=== PATIENT | male | born 1980 ===

== ENCOUNTER 2017-03-17 03:12 | Inpatient (IN) | payer MEDICAID, OTHER ==
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
[2017-03-17] MEDS ORDERED: Sodium Chloride 0.9% 1,000 ML IV STA (03:25)
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
[2017-03-17 05:17] LABS: ALB/GLOB RATIO 1.4 (1.1-1.8); ALBUMIN 4.8 g/dL (3.0-4.8); ALT/SGPT 29 U/L (7-56); AST/SGOT 36 U/L (15-59); BLOOD UREA NITROGEN 8 mg/dL (7-21); GFR AFRICAN-AMERICAN > 60; GFR NON-AFRICAN AMERICAN > 60; LIPASE 35 U/L (23-300); MAGNESIUM 1.9 mg/dL (1.7-2.2)
[2017-03-17 05:28] LABS: TROPONIN I < 0.01 ng/mL
[2017-03-17] MEDS: Folic Acid 1 MG, Thiamine 100 MG, Multivitamin (MVI) 10 ML in Dextrose 5% In Water 1,00... IV SCH ×2 (05:28→16:52)
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
[2017-03-17 05:39] LABS: BASO # 0.01 K/mm3 (0.0-2.0); BASO % 0.1 % (0.0-3.0); GRAN # 8.45 (1.4-6.5); GRAN % 81.8 % (50.0-68.0); HEMOGLOBIN 16.9 gm/dL (14.0-18.0); LYMPH # 1.3 (1.2-3.4); LYMPH % 12.3 % (22.0-35.0); MEAN CELL VOLUME 92.5 fL (80.0-105.0); MEAN CORPUSCULAR HEMOGLOBIN 32.6 pg (25.0-35.0); MEAN CORPUSCULAR HGB CONC 35.3 g/dl (31.0-37.0); MEAN PLATELET VOLUME 9.2 fl (7.0-11.0); MONO # 0.6 (0.1-0.6); MONO % 5.8 % (1.0-6.0); PLATELET COUNT 287 10^3/uL (120.0-450.0); RBC 5.18 10^6/uL (3.5-6.1); RED CELL DISTRIBUTION WIDTH 12.6 % (11.5-14.5); WHITE BLOOD COUNT 10.3 10^3/ul (4.5-11.0)
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
[2017-03-17] MEDS ORDERED: Bacitracin Ointment 30 GM TUBE ONE (08:29)
[2017-03-17] MEDS ORDERED: Liquid Adhesive TOP ONE (08:29)
[2017-03-17] MEDS ORDERED: Lidocaine 1% w Epi 1:100,000 Inj ONE (08:29)
[2017-03-17] MEDS ORDERED: Absorbable Gelatin Sponge Size 100 ONE (08:29)
[2017-03-17] MEDS ORDERED: Thrombin Topical 20,000 Intl Units Spray Kit TOP ONE (08:30)
[2017-03-17 08:33] LABS: INR 0.99 (0.93-1.08); PARTIAL THROMBOPLASTIN TIME 26.6 Seconds (23.7-30.8); PROTHROMBIN TIME 10.7 Seconds (9.9-11.8)
[2017-03-17] MEDS ORDERED: Phenylephrine 10 mg/ml Inj ONE (08:52)
[2017-03-17] MEDS ORDERED: Propofol 10 mg/ml Inj (20 ML) ONE ×2 (08:52→08:56)
[2017-03-17] MEDS ORDERED: Succinylcholine 200 mg/10 ml Inj IV ONE (08:56)
[2017-03-17] MEDS ORDERED: Vancomycin 1 g Inj ONE (09:30)
[2017-03-17 09:35] LABS: URINE BILIRUBIN NEGATIVE (NEGATIVE); URINE BLOOD TRACE-INTACT (NEGATIVE); URINE GLUCOSE (UA) NEGATIVE (NEGATIVE); URINE LEUKOCYTE ESTERASE NEGATIVE Leu/uL (NEGATIVE); URINE NITRATE NEGATIVE (NEGATIVE); URINE PROTEIN TRACE mg/dL (<30 mg/dL); URINE UROBILINOGEN 0.2 E.U./dL (<1 E.U./dL)
--- NOTE | 2017-03-17 09:41 | RAD ---
HISTORY: etoh ams COMPARISON: No prior. FINDINGS: LUNGS: No active pulmonary disease. PLEURA: No significant pleural effusion identified, no pneumothorax apparent. CARDIOVASCULAR: Normal. OSSEOUS STRUCTURES: No significant abnormalities. VISUALIZED UPPER ABDOMEN: Normal. OTHER FINDINGS: None. IMPRESSION: No active disease.
[2017-03-17 09:49] LABS: URINE APPEARANCE CLEAR (CLEAR); URINE COLOR YELLOW (YELLOW)
[2017-03-17 09:56] LABS: URINE BACTERIA NEG (NEG); URINE EPITHELIAL CELLS 0 - 2 /hpf (0-5); URINE RBC NEGATIVE /hpf (0-2); URINE WBC 0 - 2 /hpf (0-6)
--- NOTE | 2017-03-17 10:09 | CARD ---
APPROVED REPORT EKG Measurement Heart [id number] MI [id number] [id number] <Conclusion> Normal sinus rhythm LVH by voltage
[2017-03-17] MEDS ORDERED: Neostigmine Methylsulfate 3mg/3ml Syringe IV ONE (10:24)
[2017-03-17] MEDS ORDERED: Glycopyrrolate 0.2 mg/ml (2ml vial) ONE (10:25)
--- NOTE | 2017-03-17 10:39 | PCM.SURG1 ---
Surgeon's Initial Post Op Note - Surgeon's Notes Surgeon: ROSIE Router Tender: SURGICAL REDIDENT Type of Anesthesia: General Endo Pre-Operative Diagnosis: ACUTE R SDH Operative Findings: ACUTE R SDH Post-Operative Diagnosis: SAME Operation Performed: R CRANIOTOMY EVAC OF SDH Specimen/Specimens Removed: SDH Estimated Blood Loss: EBL {In ML}: 100 Blood Products Given: N/A Drains Used: No Drains Post-Op Condition: Good Date of Surgery/Procedure: 03/17/17 Time of Surgery/Procedure: 10:39
[2017-03-17] MEDS ORDERED: Vancomycin 1gm in NS 250ml IVPB ONE (10:45)
[2017-03-17] MEDS ORDERED: HYDROmorphone 0.5 mg/0.5 ml ISec IVP PRN (10:57)
[2017-03-17] MEDS ORDERED: Sodium Chloride 0.9% 1,000 ML IV SCH (11:00)
[2017-03-17] MEDS: Morphine 2 mg/ml ISec IVP SCH ×2 (13:50→22:03)
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
[2017-03-17] MEDS: Dextrose 5%/0.45% NS 1,000 ML IV SCH (15:49)
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
[2017-03-17 18:35] VITALS: BMI 22.7
[2017-03-17] MEDS: Apap-Butalbital-Caffeine 325-50-40mg Tab PO PRN (20:55)
[2017-03-18] MEDS: Folic Acid 1 MG, Thiamine 100 MG, Multivitamin (MVI) 10 ML in Dextrose 5% In Water 1,00... IV SCH ×2 (02:16→13:56)
[2017-03-18 02:48] LABS: BARBITURATES, UR POSITIVE (NEGATIVE); BENZODIAZEPINES, UR NEGATIVE (NEGATIVE); OPIATES, UR POSITIVE (NEGATIVE); PHENCYCLIDINE, UR NEGATIVE (NEGATIVE)
[2017-03-18] MEDS: Morphine 2 mg/ml ISec IVP SCH ×7 (03:45→23:45)
[2017-03-18 06:38] LABS: BASO # 0.01 K/mm3 (0.0-2.0); BASO % 0.1 % (0.0-3.0); GRAN # 8.11 (1.4-6.5); GRAN % 67.7 % (50.0-68.0); LYMPH # 1.9 (1.2-3.4); LYMPH % 15.7 % (22.0-35.0); MEAN CELL VOLUME 91.7 fL (80.0-105.0); MEAN CORPUSCULAR HEMOGLOBIN 32.1 pg (25.0-35.0); MEAN PLATELET VOLUME 9.4 fl (7.0-11.0); MONO % 16.5 % (1.0-6.0); PLATELET COUNT 273 10^3/uL (120.0-450.0); RBC 4.68 10^6/uL (3.5-6.1); RED CELL DISTRIBUTION WIDTH 12.5 % (11.5-14.5)
[2017-03-18 07:55] LABS: ALB/GLOB RATIO 1.4 (1.1-1.8); ALT/SGPT 23 U/L (7-56); AST/SGOT 27 U/L (15-59); BLOOD UREA NITROGEN 9 mg/dL (7-21); CALCIUM 9.4 mg/dL (8.4-10.5); GFR AFRICAN-AMERICAN > 60; GFR NON-AFRICAN AMERICAN > 60
--- NOTE | 2017-03-18 10:13 | CT ---
PROCEDURE: CT HEAD WITHOUT CONTRAST. HISTORY: fu COMPARISON: 03/17/2017 TECHNIQUE: Axial computed tomography images were obtained through the head/brain without intravenous contrast. Radiation dose: Total exam DLP = 735 mGy-cm. This CT exam was performed using one or more of the following dose reduction techniques: Automated exposure control, adjustment of the mA and/or kV according to patient size, and/or use of iterative reconstruction technique. FINDINGS: HEMORRHAGE: There has been a recent craniotomy for drainage of a right-sided subdural hematoma. There is a small amount of air in the subdural space. There is a residual hematoma anteriorly that measures 6.7 mm in maximal thickness. BRAIN: There is improved mass effect with no significant midline shift seen currently. No atrophy or chronic microvascular ischemic changes. VENTRICLES: Unremarkable. No hydrocephalus. CALVARIUM: Recent craniotomy. This edema in the right side of the scalp. PARANASAL SINUSES: Unremarkable as visualized. No significant inflammatory changes. MASTOID AIR CELLS: Unremarkable as visualized. No inflammatory changes. OTHER FINDINGS: None. IMPRESSION: Status post recent craniotomy for drainage of right-sided subdural hematoma. Improvement in mass effect and midline shift.
[2017-03-18] MEDS: Apap-Butalbital-Caffeine 325-50-40mg Tab PO PRN (10:24)
--- NOTE | 2017-03-18 11:03 | CP.PCM.PN ---
<Denise Hurtado - Last Filed: 03/18/17 11:00> Subjective - Date & Time of Evaluation Date of Evaluation: 03/18/17 Time of Evaluation: 07:30 - Subjective Subjective: ICU progress note, Denise Hurtado PGY-2 Pt was seen and examined at bedside. No acute complaints at this time. Pt headache improved since yesterday. No acute events overnight as per nursing staff. Pt denied fever, chills, sob, chest pains, abdominal pains, n/v/d/c or urinary symptoms. Objective - Vital Signs/Intake and Output Vital Signs (last 24 hours): Temp Pulse Resp BP Pulse Ox 98.3 F 70 21 117/70 96 03/18/17 04:00 03/18/17 10:00 03/18/17 10:00 03/18/17 10:00 03/18/17 10:00 Intake and Output: 03/18/17 03/18/17 06:59 18:59 Intake Total 3100 Output Total 3325 Balance -225 - Medications Medications: Current Medications Acetaminophen/Butalbital/Caffeine (Fioricet) 1 tab PO Q4H PRN PRN Reason: headache Last Admin: 03/18/17 10:24 Dose: 1 tab Folic Acid 1 mg/ Thiamine HCl 100 mg/ Multivitamins/Vitamin C 10 ml/ Dextrose 1 ,011.2 mls @ 100 mls/hr IV .Q10H7M [facility] Last Admin: 03/18/17 02:16 Dose: 100 mls/hr Dextrose/Sodium Chloride (Dextrose 5%/0.45% Ns 1000 Ml) 1,000 mls @ 80 mls/hr IV .[id number] [facility] Last Admin: 03/17/17 15:49 Dose: 80 mls/hr Levetiracetam 250 mg/ Sodium (Chloride) 102.5 mls @ 410 mls/hr IV 0800,1999 [facility] Morphine Sulfate (Morphine) 2 mg IVP Q4H [facility] Last Admin: 03/18/17 10:30 Dose: 2 mg Pantoprazole Sodium (Protonix Inj) 40 mg IVP DAILY [facility] Last Admin: 03/18/17 10:25 Dose: 40 mg - Labs Labs: 03/18/17 05:55 03/18/17 05:55 PT 10.7 Seconds (9.9-11.8) 03/17/17 08:10 INR 0.99 (0.93-1.08) 03/17/17 08:10 APTT 26.6 Seconds (23.7-30.8) 03/17/17 08:10 - Constitutional Appears: No Acute Distress - Head Exam Additional comments: s/p Rt craniectomy bandaged cdi - Eye Exam Eye Exam: EOMI, Normal appearance, PERRL Pupil Exam: NORMAL ACCOMODATION, PERRL - ENT Exam ENT Exam: Mucous Membranes Moist, Normal Exam - Neck Exam Neck Exam: Full ROM, Normal Inspection. absent: Lymphadenopathy - Respiratory Exam Respiratory Exam: Clear to Ausculation Bilateral, NORMAL BREATHING PATTERN - Cardiovascular Exam Cardiovascular Exam: REGULAR RHYTHM, +S1, +S2. absent: Murmur - GI/Abdominal Exam GI & Abdominal Exam: Soft, Normal Bowel Sounds. absent: Tenderness - Extremities Exam Extremities Exam: Full ROM, Normal Capillary Refill, Normal Inspection. absent : Joint Swelling, Pedal Edema - Neurological Exam Neurological Exam: Alert, Awake, CN II-XII Intact, Normal Gait, Oriented x3 - Psychiatric Exam Psychiatric exam: Normal Affect, Normal Mood - Skin Skin Exam: Dry, Intact, Normal Color, Warm Assessment and Plan - Assessment and Plan (Free Text) Assessment: 37 M admitted to the ICU for close monitoring for traumatic brain injury, found to have rt subdural hematoma with a 7mm shift s/p rt subdural hematoma evacuation POD# 1. Repeat CT shows improvement of subdural hematoma, no shift noted. Neuro: - TBI: Rt Subdural hematoma with 7mm Shift s/p Rt subdural hematoma evacuation by NeuroSurgery, Dr. Garcia - AAOx3, mentating well - neurochecks q2h - seizure precautions - CIWA protocol for etoh abuse hx - Folic Acid, thiamine, multivitamins in Dextrose - Neurology, Dr. Soraida Josue Consulted, keppra 250mg IV q12 Pulm: - Stable, satting in the 90s - Maintain 02 sat >90% - HOB >30 - Aspiration Precautions CVS: - HD Stable - Continue to monitor - Maintain MAP >65 Renal: - Continue to monitor renal fcn - Supplement elytes as needed - voiding freely - maintain euvolemia ID: - afebrile - no leukocytosis or signs of infx - continue to monitor - maintain normothermia GI: - GI ppx - tolerating Regular diet Endo: - maintain bg 140-180 - currently stable GI and DVT ppx reviewed Seen reviewed and discussed with attending <Jimmy Stokes - Last Filed: 03/18/17 17:02> Objective - Vital Signs/Intake and Output Vital Signs (last 24 hours): Temp Pulse Resp BP Pulse Ox 98.3 F 78 17 110/69 96 03/18/17 04:00 03/18/17 15:30 03/18/17 15:30 03/18/17 15:30 03/18/17 15:30 Intake and Output: 03/18/17 03/18/17 06:59 18:59 Intake Total 3100 Output Total 3325 Balance -225 - Medications Medications: Current Medications Acetaminophen/Butalbital/Caffeine (Fioricet) 1 tab PO Q4H PRN PRN Reason: headache Last Admin: 03/18/17 10:24 Dose: 1 tab Benzocaine/Menthol (Cepacol Sore Throat) 1 denise MT Q2H PRN PRN Reason: Sore Throat Last Admin: 03/18/17 15:36 Dose: 1 denise Folic Acid 1 mg/ Thiamine HCl 100 mg/ Multivitamins/Vitamin C 10 ml/ Dextrose 1 ,011.2 mls @ 100 mls/hr IV .Q10H7M [facility] Last Admin: 03/18/17 13:56 Dose: 100 mls/hr Dextrose/Sodium Chloride (Dextrose 5%/0.45% Ns 1000 Ml) 1,000 mls @ 80 mls/hr IV .[id number] [facility] Last Admin: 03/17/17 15:49 Dose: 80 mls/hr Levetiracetam 250 mg/ Sodium (Chloride) 102.5 mls @ 410 mls/hr IV 0800,2000 [facility] Morphine Sulfate (Morphine) 2 mg IVP Q4H [facility] Last Admin: 03/18/17 14:54 Dose: Not Given Pantoprazole Sodium (Protonix Inj) 40 mg IVP DAILY [facility] Last Admin: 03/18/17 10:25 Dose: 40 mg - Labs Labs: 03/18/17 05:55 03/18/17 05:55 PT 10.7 Seconds (9.9-11.8) 03/17/17 08:10 INR 0.99 (0.93-1.08) 03/17/17 08:10 APTT 26.6 Seconds (23.7-30.8) 03/17/17 08:10 Attending/Attestation - Attestation I have personally seen and examined this patient.: Yes I have fully participated in the care of the patient.: Yes I have reviewed all pertinent clinical information, including history, physical exam and plan: Yes Notes (Text): 03/18/17 16:59 37 yo with acute SDH, s/p evacuation. alert and oriented x 3, no neuro deficit. Plan: pain control, OOB to chair, PT/OT, IS, chest PT, euvolemia, euglycemia, normothermia and 02 sat>90%. DVT/GI prophylaxis ccm time 40 min
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
--- NOTE | 2017-03-18 14:06 | CP.PCM.PN ---
Subjective - Date & Time of Evaluation Date of Evaluation: 03/18/17 Time of Evaluation: 14:04 - Subjective Subjective: POD 1 a, a, o x 3 follows all commands león well dsg c and d Rec transfer to floor OOB , ambulation Clear for dc from our standpoint when ambulating Objective - Vital Signs/Intake and Output Vital Signs (last 24 hours): Temp Pulse Resp BP Pulse Ox 98.3 F 79 14 130/69 98 03/18/17 04:00 03/18/17 13:30 03/18/17 13:30 03/18/17 13:30 03/18/17 13:30 Intake and Output: 03/18/17 03/18/17 06:59 18:59 Intake Total 3100 Output Total 3325 Balance -225 - Medications Medications: Current Medications Acetaminophen/Butalbital/Caffeine (Fioricet) 1 tab PO Q4H PRN PRN Reason: headache Last Admin: 03/18/17 10:24 Dose: 1 tab Folic Acid 1 mg/ Thiamine HCl 100 mg/ Multivitamins/Vitamin C 10 ml/ Dextrose 1 ,011.2 mls @ 100 mls/hr IV .Q10H7M [facility] Last Admin: 03/18/17 13:56 Dose: 100 mls/hr Dextrose/Sodium Chloride (Dextrose 5%/0.45% Ns 1000 Ml) 1,000 mls @ 80 mls/hr IV .[id number] [facility] Last Admin: 03/17/17 15:49 Dose: 80 mls/hr Levetiracetam 250 mg/ Sodium (Chloride) 102.5 mls @ 410 mls/hr IV 0800,1999 [facility] Morphine Sulfate (Morphine) 2 mg IVP Q4H [facility] Last Admin: 03/18/17 10:30 Dose: 2 mg Pantoprazole Sodium (Protonix Inj) 40 mg IVP DAILY [facility] Last Admin: 03/18/17 10:25 Dose: 40 mg - Labs Labs: 03/18/17 05:55 03/18/17 05:55 PT 10.7 Seconds (9.9-11.8) 03/17/17 08:10 INR 0.99 (0.93-1.08) 03/17/17 08:10 APTT 26.6 Seconds (23.7-30.8) 03/17/17 08:10
[2017-03-18] MEDS ORDERED: Benzocaine/Menthol (Cepacol) Lozenge MT PRN (14:53)
--- NOTE | 2017-03-18 16:06 | OP ---
PROCEDURE DATE: 03/17/2017 PREOPERATIVE DIAGNOSIS: Right acute subdural hematoma. POSTOPERATIVE DIAGNOSIS: Right acute subdural hematoma. PROCEDURE: Craniotomy for evacuation of right acute subdural hematoma. SURGEON: Marcelo Garcia MD BI[employer]ESSING [employer]UFA[employer]URING TECHNICIAN: residential manager. Antolin. DESCRIPTION OF PROCEDURE: The patient was brought to the operating room, Intubated appropriately, head was turned to left to right frontal parietotemporal region was prepped and draped in the usual manner. incision was marked out in the frontoparietal region prior to draping. After draping, was instilled with 10 mL of lidocaine with epinephrine. The incision was then incised sharply and Alirio clips were applied to the skin edge. The flap was retracted back in the usual manner. Four bur holes were placed in the corners of the exposed cranium, extended with the craniotome and the bone plate was removed. The underlying dura was full tense and blue. The dura was then opened in a cruciate manner with a 15 blade followed by Metzenbaum scissors. There was acute subdural underlying air which was easily evacuated using combination of irrigation and blunt dissection and suction. After removing the bulk of the subdural, the underlying brain appeared to be normal in characteristics, pulsatile and slack. The subdural space was irrigated with copious amounts of antibiotic irrigation until all returns were clear. At this point, the dura was then reapproximated with 4-0 Nurolon. Piece of Gelfoam was placed over the exposed dura and three 16 mm plates were then used placing 3 other bur holes tightened and taut and the stems cut off. The wound was again irrigated and the scalp was reapproximated using 2-0 Vicryl and skin brigida. Sterile dressing was applied and the patient was then awoke from anesthesia, has been moving lower extremities, talking . ESTIMATED BLOOD LOSS: Approximately 100 mL. All counts were correct. SPECIMEN: Subdural hematoma. Marcelo Garcia MD
[2017-03-19] MEDS: Dextrose 5%/0.45% NS 1,000 ML IV SCH (01:11)
[2017-03-19] MEDS: Morphine 2 mg/ml ISec IVP SCH ×6 (03:45→22:45)
[2017-03-19 06:37] LABS: BASO # 0.01 K/mm3 (0.0-2.0); BASO % 0.2 % (0.0-3.0); EOS % 0.3 % (1.5-5.0); GRAN # 3.11 (1.4-6.5); GRAN % 47.3 % (50.0-68.0); HEMOGLOBIN 14.5 gm/dL (14.0-18.0); LYMPH # 2.4 (1.2-3.4); LYMPH % 35.8 % (22.0-35.0); MEAN CELL VOLUME 93.6 fL (80.0-105.0); MEAN CORPUSCULAR HEMOGLOBIN 32.1 pg (25.0-35.0); MEAN CORPUSCULAR HGB CONC 34.3 g/dl (31.0-37.0); MEAN PLATELET VOLUME 9.3 fl (7.0-11.0); MONO # 1.1 (0.1-0.6); MONO % 16.4 % (1.0-6.0); PLATELET COUNT 235 10^3/uL (120.0-450.0); RBC 4.52 10^6/uL (3.5-6.1); RED CELL DISTRIBUTION WIDTH 12.7 % (11.5-14.5); WHITE BLOOD COUNT 6.6 10^3/ul (4.5-11.0)
[2017-03-19 06:50] LABS: ALB/GLOB RATIO 1.2 (1.1-1.8); ALBUMIN 3.7 g/dL (3.0-4.8); ALT/SGPT 26 U/L (7-56); AST/SGOT 26 U/L (15-59); BLOOD UREA NITROGEN 10 mg/dL (7-21); GFR AFRICAN-AMERICAN > 60; GFR NON-AFRICAN AMERICAN > 60
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
[2017-03-20] MEDS: Morphine 2 mg/ml ISec IVP SCH ×2 (02:45→07:26)
[2017-03-20] MEDS ORDERED: Pantoprazole 40 mg EC Tab PO SCH (06:00)
[2017-03-20 07:58] LABS: BASO # 0.02 K/mm3 (0.0-2.0); BASO % 0.3 % (0.0-3.0); EOS % 0.7 % (1.5-5.0); GRAN # 2.92 (1.4-6.5); GRAN % 49.6 % (50.0-68.0); HEMOGLOBIN 14.9 gm/dL (14.0-18.0); LYMPH # 2.2 (1.2-3.4); LYMPH % 37.8 % (22.0-35.0); MEAN CELL VOLUME 93.7 fL (80.0-105.0); MEAN CORPUSCULAR HEMOGLOBIN 32.4 pg (25.0-35.0); MEAN CORPUSCULAR HGB CONC 34.6 g/dl (31.0-37.0); MEAN PLATELET VOLUME 9.2 fl (7.0-11.0); MONO # 0.7 (0.1-0.6); MONO % 11.6 % (1.0-6.0); PLATELET COUNT 251 10^3/uL (120.0-450.0); RED CELL DISTRIBUTION WIDTH 12.5 % (11.5-14.5); WHITE BLOOD COUNT 5.9 10^3/ul (4.5-11.0)
[2017-03-20] MEDS ORDERED: Multivitamin With Minerals Tab PO SCH (08:00)
[2017-03-20 08:12] LABS: ALB/GLOB RATIO 1.1 (1.1-1.8); ALBUMIN 3.7 g/dL (3.0-4.8); ALT/SGPT 29 U/L (7-56); AST/SGOT 24 U/L (15-59); BLOOD UREA NITROGEN 12 mg/dL (7-21); CALCIUM 9.4 mg/dL (8.4-10.5); GFR AFRICAN-AMERICAN > 60; GFR NON-AFRICAN AMERICAN > 60
[2017-03-20 08:44] VITALS: BP 121/82; PULSE 60; RESP 19; TEMP 98; O2SAT 99
--- NOTE | 2017-03-20 11:09 | CP.PCM.DIS ---
<Amber Fermin - Last Filed: 03/20/17 15:44> Provider - Provider Date of Admission: 03/17/17 06:05 Attending physician: Melody Fischer MD Primary care physician: NO PRIMARY CARE PROVIDER Consults: NeurosurgeryDave Garcia Time Spent in preparation of Discharge (in minutes): 35 Diagnosis - Discharge Diagnosis (1) S/P craniotomy Status: Acute Hospital Course - Lab Results Lab Results: Micro Results 03/17/17 11:40 Naris MRSA Culture (Admit) - Final MRSA NOT DETECTED Most Recent Lab Values WBC 5.9 10^3/ul (4.5-11.0) 03/20/17 07:30 RBC 4.60 10^6/uL (3.5-6.1) 03/20/17 07:30 Hgb 14.9 gm/dL (14.0-18.0) 03/20/17 07:30 Hct 43.1 % (42.0-52.0) 03/20/17 07:30 MCV 93.7 fL (80.0-105.0) 03/20/17 07:30 MCH 32.4 pg (25.0-35.0) 03/20/17 07:30 MCHC 34.6 g/dl (31.0-37.0) 03/20/17 07:30 RDW 12.5 % (11.5-14.5) 03/20/17 07:30 Plt Count 251 10^3/uL (120.0-450.0) 03/20/17 07:30 MPV 9.2 fl (7.0-11.0) 03/20/17 07:30 Gran % 49.6 % (50.0-68.0) L 03/20/17 07:30 Lymph % (Auto) 37.8 % (22.0-35.0) H 03/20/17 07:30 Anson % (Auto) 11.6 % (1.0-6.0) H 03/20/17 07:30 Eos % (Auto) 0.7 % (1.5-5.0) L 03/20/17 07:30 Baso % (Auto) 0.3 % (0.0-3.0) 03/20/17 07:30 Gran # 2.92 (1.4-6.5) 03/20/17 07:30 Lymph # 2.2 (1.2-3.4) 03/20/17 07:30 Anson # 0.7 (0.1-0.6) H 03/20/17 07:30 Eos # 0.0 (0.0-0.7) 03/20/17 07:30 Baso # 0.02 K/mm3 (0.0-2.0) 03/20/17 07:30 PT 10.7 Seconds (9.9-11.8) 03/17/17 08:10 INR 0.99 (0.93-1.08) 03/17/17 08:10 APTT 26.6 Seconds (23.7-30.8) 03/17/17 08:10 Sodium 139 mmol/L (132-148) 03/20/17 07:30 Potassium 3.8 mmol/L (3.6-5.0) 03/20/17 07:30 Chloride 100 mmol/L (98-107) 03/20/17 07:30 Carbon Dioxide 30 mmol/L (21-33) 03/20/17 07:30 Anion Gap 13 (10-20) 03/20/17 07:30 BUN 12 mg/dL (7-21) 03/20/17 07:30 Creatinine 0.8 mg/dL (0.5-1.4) 03/20/17 07:30 Est GFR ( Amer) > 60 03/20/17 07:30 Est GFR (Non-Af Amer) > 60 03/20/17 07:30 POC Glucose (mg/dL) 101 mg/dL (65-110) 03/17/17 05:00 Random Glucose 92 mg/dL (70-110) 03/20/17 07:30 Calcium 9.4 mg/dL (8.4-10.5) 03/20/17 07:30 Phosphorus 3.5 mg/dL (2.5-4.5) 03/17/17 04:20 Magnesium 1.9 mg/dL (1.7-2.2) 03/17/17 04:20 Total Bilirubin 0.9 mg/dL (0.2-1.3) 03/20/17 07:30 AST 24 U/L (15-59) 03/20/17 07:30 ALT 29 U/L (7-56) 03/20/17 07:30 Alkaline Phosphatase 59 U/L (38-133) 03/20/17 07:30 Lactate Dehydrogenase 549 U/L (333-699) 03/17/17 04:20 Total Creatine Kinase 98 U/L (35-230) 03/17/17 04:20 Troponin I < 0.01 ng/mL 03/17/17 04:20 Total Protein 7.0 g/dL (5.8-8.3) 03/20/17 07:30 Albumin 3.7 g/dL (3.0-4.8) 03/20/17 07:30 Globulin 3.3 gm/dL 03/20/17 07:30 Albumin/Globulin Ratio 1.1 (1.1-1.8) 03/20/17 07:30 Lipase 35 U/L (23-300) 03/17/17 04:20 Urine Color Yellow (YELLOW) 03/17/17 03:24 Urine Appearance Clear (CLEAR) 03/17/17 03:24 Urine pH 6.0 (4.7-8.0) 03/17/17 03:24 Ur Specific [place] 1.025 (1.005-1.035) 03/17/17 03:24 Urine Protein Trace mg/dL (<30 mg/dL) H 03/17/17 03:24 Urine Glucose (UA) Negative mg/dL (NEGATIVE) 03/17/17 03:24 Urine Ketones 15 mg/dL (NEGATIVE) H 03/17/17 03:24 Urine Blood Trace-intact (NEGATIVE) H 03/17/17 03:24 Urine Nitrate Negative (NEGATIVE) 03/17/17 03:24 Urine Bilirubin Negative (NEGATIVE) 03/17/17 03:24 Urine Urobilinogen 0.2 E.U./dL (<1 E.U./dL) 03/17/17 03:24 Ur Leukocyte Esterase Negative Mayra/uL (NEGATIVE) 03/17/17 03:24 Urine RBC Negative /hpf (0-2) 03/17/17 03:24 Urine WBC 0 - 2 /hpf (0-6) 03/17/17 03:24 Ur Epithelial Cells 0 - 2 /hpf (0-5) 03/17/17 03:24 Urine Bacteria Neg (NEG) 03/17/17 03:24 Urine Opiates Screen Positive (NEGATIVE) H 03/18/17 01:50 Urine Methadone Screen Negative (NEGATIVE) 03/18/17 01:50 Ur Barbiturates Screen Positive (NEGATIVE) H 03/18/17 01:50 Ur Phencyclidine Scrn Negative (NEGATIVE) 03/18/17 01:50 Ur Amphetamines Screen Negative (NEGATIVE) 03/18/17 01:50 U Benzodiazepines Scrn Negative (NEGATIVE) 03/18/17 01:50 U Oth Cocaine Metabols Positive (NEGATIVE) H 03/18/17 01:50 U Cannabinoids Screen Negative (NEGATIVE) 03/18/17 01:50 Alcohol, Quantitative 267 mg/dL (0-10) H 03/17/17 04:20 Blood Type A POSITIVE 03/17/17 08:10 Blood Type Confirm A POSITIVE 03/18/17 05:55 Antibody Screen Negative 03/17/17 08:10 BBK History Checked No verified bt 03/17/17 08:10 - Hospital Course Hospital Course: 37M admitted to hospital 2/2 AMS/unresponsiveness from ETOH intoxication. Work up in ED revealed 6-9mm subdural hematoma on CT of head, L nasal bone deformity on CT of face; ETOH level 267. Pt was admitted to ICU, placed on CIWA protocol with all precautions and pain mgmt. Neurology consulted, recommendation of Keppra therapy. Neuro surgery saw/evaluated pt with recommendation for crainiotomy on hospital day 1. POD#[address] w/improvement of subdural hematoma, no shift noted; pt stabilized, transferred from ICU to med surg. Pt encouraged to ambulate, did well on med surg floor, stable, dressing removed and wound cleaned with wound care instructions rendered to pt and family member at bedside, and ready for discharge home with follow up with Neurosurgery on hospital day 4. Diagnoses: ETOH intoxication, Subdural hematom, s/p Right craniotomy w/subdural hematoma evacuation, polysubstance abuse - Date & Time of H&P Date of H&P: 03/17/17 Time of H&P: 17:22 Discharge Exam - Head Exam Additional comments: Right side of head shaved with surgical incision site well approximated with brigida in place, no drainage noted, dressing removed as per neurosurgery - Eye Exam Eye Exam: EOMI, Normal appearance - ENT Exam ENT Exam: Mucous Membranes Moist, Normal Exam - Neck Exam Neck exam: Full Rom, Normal Inspection - Respiratory Exam Respiratory Exam: Clear to PA & Lateral, NORMAL BREATHING PATTERN, UNREMARKABLE - Cardiovascular Exam Cardiovascular Exam: REGULAR RHYTHM, +S1, +S2 - GI/Abdominal Exam GI & Abdominal Exam: Normal Bowel Sounds, Soft, Unremarkable. absent: Tenderness - Extremities Exam Extremities exam: full ROM, normal inspection - Back Exam Back exam: NORMAL INSPECTION - Neurological Exam Neurological exam: Alert, CN II-XII Intact, Normal Gait, Oriented x3 - Psychiatric Exam Psychiatric exam: Normal Affect, Normal Mood - Skin Skin Exam: Dry, Intact, Normal Color, Warm Discharge Plan - Discharge Medications Prescriptions: Folic Acid 1 mg PO DAILY #30 tab levETIRAcetam [Keppra] 250 mg PO BID #60 tab Multimineral/Multivitamin [Therapeutic-M Tab] 1 tab PO DAILY #30 tab Thiamine [Vitamin B1 Tab] 100 mg PO DAILY #30 tab - Follow Up Plan Condition: STABLE Disposition: HOME/ ROUTINE Instructions: Pain Management After Surgery (DC), Subdural Hematoma (DC), Abuse of Alcohol (DC), Acute Wound Care (DC) Additional Instructions: 1. Please follow up with the [facility] to establish care with a primary care provider. Please call Dr. Garcia's (the neurosurgeon) office for a follow up appointment within 2 weeks. 2. Fill any medications prescribed to you and take as directed. 3. Return to the emergency room if you have any worsening of you symptoms or condition 4. Refrain from alcohol and tobacco use. 5. Refrain from illicit drug use, especially cocaine 6. Okay to shower, gently clean surgical site with soap and water. Pat dry. For further questions contact Dr. Garcia. 7. Please contact [facility] and set up appointment for primary care follow up. Referrals: [facility] at [facility] [place] [place] [Outside] Marcelo Garcia MD [Staff Provider] - PCP,NO [Primary Care Provider] - <Melody Fischer - Last Filed: 03/20/17 16:44> Provider - Provider Date of Admission: 03/17/17 06:05 Attending physician: Melody Fischer MD Primary care physician: NO PRIMARY CARE PROVIDER Hospital Course - Lab Results Lab Results: Micro Results 03/17/17 11:40 Naris MRSA Culture (Admit) - Final MRSA NOT DETECTED Most Recent Lab Values WBC 5.9 10^3/ul (4.5-11.0) 03/20/17 07:30 RBC 4.60 10^6/uL (3.5-6.1) 03/20/17 07:30 Hgb 14.9 gm/dL (14.0-18.0) 03/20/17 07:30 Hct 43.1 % (42.0-52.0) 03/20/17 07:30 MCV 93.7 fL (80.0-105.0) 03/20/17 07:30 MCH 32.4 pg (25.0-35.0) 03/20/17 07:30 MCHC 34.6 g/dl (31.0-37.0) 03/20/17 07:30 RDW 12.5 % (11.5-14.5) 03/20/17 07:30 Plt Count 251 10^3/uL (120.0-450.0) 03/20/17 07:30 MPV 9.2 fl (7.0-11.0) 03/20/17 07:30 Gran % 49.6 % (50.0-68.0) L 03/20/17 07:30 Lymph % (Auto) 37.8 % (22.0-35.0) H 03/20/17 07:30 Anson % (Auto) 11.6 % (1.0-6.0) H 03/20/17 07:30 Eos % (Auto) 0.7 % (1.5-5.0) L 03/20/17 07:30 Baso % (Auto) 0.3 % (0.0-3.0) 03/20/17 07:30 Gran # 2.92 (1.4-6.5) 03/20/17 07:30 Lymph # 2.2 (1.2-3.4) 03/20/17 07:30 Anson # 0.7 (0.1-0.6) H 03/20/17 07:30 Eos # 0.0 (0.0-0.7) 03/20/17 07:30 Baso # 0.02 K/mm3 (0.0-2.0) 03/20/17 07:30 PT 10.7 Seconds (9.9-11.8) 03/17/17 08:10 INR 0.99 (0.93-1.08) 03/17/17 08:10 APTT 26.6 Seconds (23.7-30.8) 03/17/17 08:10 Sodium 139 mmol/L (132-148) 03/20/17 07:30 Potassium 3.8 mmol/L (3.6-5.0) 03/20/17 07:30 Chloride 100 mmol/L (98-107) 03/20/17 07:30 Carbon Dioxide 30 mmol/L (21-33) 03/20/17 07:30 Anion Gap 13 (10-20) 03/20/17 07:30 BUN 12 mg/dL (7-21) 03/20/17 07:30 Creatinine 0.8 mg/dL (0.5-1.4) 03/20/17 07:30 Est GFR ( Amer) > 60 03/20/17 07:30 Est GFR (Non-Af Amer) > 60 03/20/17 07:30 POC Glucose (mg/dL) 101 mg/dL (65-110) 03/17/17 05:00 Random Glucose 92 mg/dL (70-110) 03/20/17 07:30 Calcium 9.4 mg/dL (8.4-10.5) 03/20/17 07:30 Phosphorus 3.5 mg/dL (2.5-4.5) 03/17/17 04:20 Magnesium 1.9 mg/dL (1.7-2.2) 03/17/17 04:20 Total Bilirubin 0.9 mg/dL (0.2-1.3) 03/20/17 07:30 AST 24 U/L (15-59) 03/20/17 07:30 ALT 29 U/L (7-56) 03/20/17 07:30 Alkaline Phosphatase 59 U/L (38-133) 03/20/17 07:30 Lactate Dehydrogenase 549 U/L (333-699) 03/17/17 04:20 Total Creatine Kinase 98 U/L (35-230) 03/17/17 04:20 Troponin I < 0.01 ng/mL 03/17/17 04:20 Total Protein 7.0 g/dL (5.8-8.3) 03/20/17 07:30 Albumin 3.7 g/dL (3.0-4.8) 03/20/17 07:30 Globulin 3.3 gm/dL 03/20/17 07:30 Albumin/Globulin Ratio 1.1 (1.1-1.8) 03/20/17 07:30 Lipase 35 U/L (23-300) 03/17/17 04:20 Urine Color Yellow (YELLOW) 03/17/17 03:24 Urine Appearance Clear (CLEAR) 03/17/17 03:24 Urine pH 6.0 (4.7-8.0) 03/17/17 03:24 Ur Specific [place] 1.025 (1.005-1.035) 03/17/17 03:24 Urine Protein Trace mg/dL (<30 mg/dL) 03/17/17 03:24 Urine Glucose (UA) Negative mg/dL (NEGATIVE) 03/17/17 03:24 Urine Ketones 15 mg/dL (NEGATIVE) 03/17/17 03:24 Urine Blood Trace-intact (NEGATIVE) 03/17/17 03:24 Urine Nitrate Negative (NEGATIVE) 03/17/17 03:24 Urine Bilirubin Negative (NEGATIVE) 03/17/17 03:24 Urine Urobilinogen 0.2 E.U./dL (<1 E.U./dL) 03/17/17 03:24 Ur Leukocyte Esterase Negative Mayra/uL (NEGATIVE) 03/17/17 03:24 Urine RBC Negative /hpf (0-2) 03/17/17 03:24 Urine WBC 0 - 2 /hpf (0-6) 03/17/17 03:24 Ur Epithelial Cells 0 - 2 /hpf (0-5) 03/17/17 03:24 Urine Bacteria Neg (NEG) 03/17/17 03:24 Urine Opiates Screen Positive (NEGATIVE) 03/18/17 01:50 Urine Methadone Screen Negative (NEGATIVE) 03/18/17 01:50 Ur Barbiturates Screen Positive (NEGATIVE) 03/18/17 01:50 Ur Phencyclidine Scrn Negative (NEGATIVE) 03/18/17 01:50 Ur Amphetamines Screen Negative (NEGATIVE) 03/18/17 01:50 U Benzodiazepines Scrn Negative (NEGATIVE) 03/18/17 01:50 U Oth Cocaine Metabols Positive (NEGATIVE) 03/18/17 01:50 U Cannabinoids Screen Negative (NEGATIVE) 03/18/17 01:50 Alcohol, Quantitative 267 mg/dL (0-10) H 03/17/17 04:20 Blood Type A POSITIVE 03/17/17 08:10 Blood Type Confirm A POSITIVE 03/18/17 05:55 Antibody Screen Negative 03/17/17 08:10 BBK History Checked No verified bt 03/17/17 08:10 Attending/Attestation - Attestation I have personally seen and examined this patient.: Yes I have fully participated in the care of the patient.: Yes I have reviewed all pertinent clinical information, including history, physical exam and plan: Yes Notes (Text): 03/20/17 16:43 attending note; Patient seen and examined with resident. Patient is a 37-year-old male admitted after a subdural hematoma due to fall. Status post craniotomy and evacuation of subdural hematoma. POD##. Neurosurgery evaluation appreciated. Repeat she CT showed improvement in the mass effect and midline shift. Patient is alert, awake and oriented. No focal deficit. Physical therapy evaluation appreciated. Alcohol abuse; complete alcohol cessation is strongly advised. Paperwork completed for [facility]. social worker psychiatric evaluation appreciated. patient will be referred to [facility] [place] [place] clinic upon discharge. Patient needs close follow-up with neurosurgery as outpatient. diagnosis; Subdural hematoma Status post craniotomy and evacuation Alcohol abuse
[2017-03-20] MEDS ORDERED: Dakin's Topical 0.25%-Half Strength (480 ml) TOP SCH (13:30)
== END 2017-03-20 15:43 | disposition home or self-care (01) | DRG 27 ==
LOC: ED 03:12 → ERH 06:05 → CCU 11:29 → 3RSO 03-19 17:02
PROVIDERS: ADMIT Internal Medicine; ATTEND Internal Medicine
PROC: 00C40ZZ Extirpation of Matter from Intracranial Subdural Space, Open Approach (ICD-10-PCS; principal; 2017-03-17 09:00)
DX: S06.5X9A Traumatic subdural hemorrhage with loss of consciousness of unspecified duration, initial encounter (principal); F10.129 Alcohol abuse with intoxication, unspecified; F14.10 Cocaine abuse, uncomplicated; Y90.8 Blood alcohol level of 240 mg/100 ml or more; J02.9 Acute pharyngitis, unspecified; Y04.0XXA Assault by unarmed brawl or fight, initial encounter; Y93.89 Activity, other specified; Y92.9 Unspecified place or not applicable; Y99.9 Unspecified external cause status

== ENCOUNTER 2017-03-20 22:49 | Observation (INO) | payer MEDICAID, OTHER ==
--- NOTE | 2017-03-20 22:57 | ED PDOC ---
Arrival/HPI - General Time Seen by Provider: 03/20/17 22:52 - History of Present Illness Narrative History of Present Illness (Text): 03/21/17 00:38 37-year-old male presents emergency Department with one-day duration of headache , nausea, vomiting. Patient was recently discharged from the hospital on March 20 after having subdural hematoma evacuation. Denies any alcohol use today, denies any trauma or injury. No other complaints. Past Medical History - Provider Review Nursing Documentation Reviewed: Yes - Past History Past History: Unable to Obtain - Infectious Disease Hx of Infectious Diseases: None - Cardiac Hx Cardiac Disorders: No - Pulmonary Hx Respiratory Disorders: No - Neurological Hx Neurological Disorder: No - Renal Hx Renal Failure: No - Endocrine/Metabolic Hx Endocrine Disorders: No - Hematological/Oncological Hx Blood Disorders: No - Musculoskeletal/Rheumatological Hx Falls: No - Gastrointestinal Hx Gastrointestinal Disorders: No - Psychiatric Hx Substance Use: No - Anesthesia Hx Anesthesia: No Family/Social History Family/Social History: Unknown Family HX Smoking Status: Unknown If Ever Smoked Hx Alcohol Use: Yes Hx Substance Use: No Allergies/Home Meds Allergies/Adverse Reactions: Allergies No Known Allergies Allergy (Verified 03/20/17 22:59) Physical Exam - Physical Exam Narrative Physical Exam (Text): 03/21/17 00:40 - Review of Systems Constitutional: Normal. absent: Fatigue, Weight Change, Fevers Eyes: Normal ENT: denies sore throat, denies tristhmus Respiratory: Normal. absent: SOB, Cough, Sputum Cardiovascular: absent: Chest Pain, Palpitations, Syncope Gastrointestinal: Nausea, Vomiting absent: Abdominal Pain, Diarrhea Genitourinary: Normal. absent: Dysuria, Frequency, Hematuria Musculoskeletal: Normal. absent: Arthralgias, Back Pain, Neck Pain Skin: no rashes, no erythema Neurological: BORGES absent: Focal Weakness Endocrine: Normal Hemo/Lymphatic: Normal Psychiatric: No suicidal or homicidal ideations Physical exam Patient appears age appropriate in no distress, speaking full sentences without difficulty - Systems Exam Head: Present: Atraumatic, Normocephalic Pupils: Present: PERRL Extroacular Muscles: Present: EOMI Conjunctiva: Subconjunctival hemorrhage on the right Mouth: Present: Moist Mucous Membranes Neck: Present: Normal Range of Motion. No: MIDLINE TENDERNESS, Paraspinal Tenderness Respiratory/Chest: Present: Clear to Auscultation, Good Air Exchange. No: Respiratory Distress, Accessory Muscle Use, Tachypneic Cardiovascular: Present: Regular Rate and Rhythm, Normal S1, S2, Peripheal Pulses Present. No: Murmurs Abdomen: Present: Normal Bowel Sounds. No: Tenderness, Distention, Peritoneal Signs, Rebound, Guarding Back: Present: Normal Inspection. No: Midline Tenderness, Paraspinal Tenderness Upper Extremity: Present: Normal Inspection. No: Cyanosis, Edema Lower Extremity: Present: Normal Inspection. No: Edema Neurological: Present: GCS=15, Speech Normal, cranial nerves II through XII fully intact with no cerebellar abnormality, neurosensory fully intact. No focal neurological deficits. Skin: Present: Warm, Dry, Normal Color. No: Rashes Lymphatic: Present: OX3, NI, NC Psychiatric: Present: Alert, Oriented x 3, Normal Insight, Normal Concentration Vital Signs Reviewed: Yes Vital Signs Temp Pulse Resp BP Pulse Ox 03/20/17 23:01 98.2 F 83 18 128/78 96 Temperature: Afebrile Blood Pressure: Normal Pulse: Regular Respiratory Rate: Normal Appearance: Positive for: Well-Appearing Pain Distress: None Mental Status: Positive for: Alert and Oriented X 3 Medical Decision Making ED Course and Treatment: 03/20/17 22:57 Patient's previous records reviewed, patient was discharged on 03/20/17 after he was in the emergency department and admitted with alcohol intoxication, 6-9 mm subdural hematoma and left nasal bone deformity. Patient had right craniotomy performed with subdural hematoma evacuation. 03/21/17 00:41 37-year-old male with nausea, vomiting, headache, active recent craniotomy. No focal neurological deficits on examination. Labs and repeat CAT scan ordered, will reevaluate. 03/21/17 01:14 CT Head Without Intravenous Contrast IMPRESSION: 1. Again visualized is a right-sided craniotomy, with right-sided pneumocephalus. 2. A right cerebral subdural hematoma is again visualized. Within the right frontal convexity, this has a maximal thickness of 8 mm, without progression compared to the previous exam. 3. There is mild midline shift to left of 4 mm, which is stable. Dictated and Authenticated by: Grayson Aguilera MD 03/21/2017 1:11 AM Eastern Time ([place] & [place]) 03/21/17 01:30 pt currently in no distress and denies complaints state he has no BORGES, and his n/v resolved dw Dr. Garcia in detail, states pt can be dc'd home with outpatient f/u 03/21/17 01:58 on reeval, pt now states that he still has a BORGES and does not feel comfortable being dc'd home pt was dc'd without pain meds pt given pain med Rx, but states he is still in pain and cannot go home dw Dr. Griffin, accepted obs to med/surg pt aware of and agrees with plan encounter translated with help of ELLY Del Valle - Lab Interpretations Lab Results: 03/20/17 23:45 03/20/17 23:45 Lab Results 03/20/17 23:45: Alcohol, Quantitative < 10 03/20/17 23:45: Sodium 138, Potassium 3.8, Chloride 96, Carbon Dioxide 32, Anion Gap 14, BUN 11, Creatinine 0.8, Est GFR ( Amer) > 60, Est GFR (Non- Af Amer) > 60, Random Glucose 125 H, Calcium 9.5, Total Bilirubin 0.5, AST 45, ALT 38, Alkaline Phosphatase 74, Total Protein 7.5, Albumin 4.2, Globulin 3.3, Albumin/Globulin Ratio 1.3, Lipase 68 03/20/17 23:45: WBC 7.4 D, RBC 4.55, Hgb 15.3, Hct 41.8 L, MCV 91.9, MCH 33.6, MCHC 36.6, RDW 12.1, Plt Count 301, MPV 9.3, Gran % 71.7 H, Lymph % (Auto) 20.5 L, Power % (Auto) 7.6 H, Eos % (Auto) 0.1 L, Baso % (Auto) 0.1, Gran # 5.27, Lymph # 1.5, Power # 0.6, Eos # 0.0, Baso # 0.01 - RAD Interpretation Radiology Orders: 03/20/17 23:24 HEAD W/O CONTRAST [CT] Stat - Medication Orders Current Medication Orders: Discontinued Medications Famotidine (Pepcid 20mg/50ml Premix) 20 mg in 50 mls @ 100 mls/hr IV STAT STA Stop: 03/20/17 23:53 Last Admin: 03/20/17 23:48 Dose: 100 mls/hr Sodium Chloride (Sodium Chloride 0.9%) 500 mls @ 1,000 mls/hr IV .Q30M STA Stop: 03/20/17 23:53 Last Admin: 03/20/17 23:49 Dose: 1,000 mls/hr Morphine Sulfate (Morphine) 4 mg IVP STAT STA Stop: 03/21/17 00:29 Last Admin: 03/21/17 00:38 Dose: 4 mg Ondansetron HCl (Zofran Inj) 4 mg IVP STAT STA Stop: 03/20/17 23:25 Last Admin: 03/20/17 23:50 Dose: 4 mg Disposition/Present on Arrival - Present on Arrival Any Indicators Present on Arrival: No History of DVT/PE: No History of Uncontrolled Diabetes: No Urinary Catheter: No History Surgical Site Infection Following: None - Disposition Have Diagnosis and Disposition been Completed?: Yes Diagnosis: Headache Disposition: HOSPITALIZED Disposition Time: 01:35 Patient Plan: Observation Patient Problems: Current Active Problems Problem Status Onset Headache Acute Condition: FAIR Discharge Instructions (ExitCare): Subdural Hematoma (ED), General Headache (ED ) Additional Instructions: PLEASE RETURN TO THE EMERGENCY DEPARTMENT FOR NEW OR WORSENING SYMPTOMS. RETURN RIGHT AWAY IF YOU CANNOT FOLLOW UP WITH YOUR PRIMARY CARE DOCTOR, CLINIC, OR SPECIALIST IN 1-2 DAYS. Prescriptions: Acetaminophen with Codeine [Tylenol with Codeine #3 Tablet] 1 each PO Q6 PRN # 12 tablet PRN Reason: Pain, Moderate (4-7) Ondansetron [Zofran Odt] 4 mg PO Q6 PRN #14 odt PRN Reason: Nausea/Vomiting Referrals: Marcelo Garcia MD [Staff Provider] - Follow up with primary
[2017-03-20 22:59] VITALS: BMI 25.8
[2017-03-20] MEDS ORDERED: Sodium Chloride 0.9% 500 ML IV STA (23:24)
[2017-03-20] MEDS ORDERED: Famotidine 20mg/50ml 20 MG/50 ML BAG IV STA (23:24)
[2017-03-21 00:27] LABS: ALB/GLOB RATIO 1.3 (1.1-1.8); ALBUMIN 4.2 g/dL (3.0-4.8); ALT/SGPT 38 U/L (7-56); AST/SGOT 45 U/L (15-59); BLOOD UREA NITROGEN 11 mg/dL (7-21); CALCIUM 9.5 mg/dL (8.4-10.5); GFR AFRICAN-AMERICAN > 60; GFR NON-AFRICAN AMERICAN > 60; LIPASE 68 U/L (23-300)
[2017-03-21] MEDS ORDERED: Morphine 4 mg/ml ISec IVP STA (00:28)
[2017-03-21 00:38] LABS: BASO # 0.01 K/mm3 (0.0-2.0); BASO % 0.1 % (0.0-3.0); EOS % 0.1 % (1.5-5.0); GRAN # 5.27 (1.4-6.5); GRAN % 71.7 % (50.0-68.0); HEMOGLOBIN 15.3 gm/dL (14.0-18.0); LYMPH # 1.5 (1.2-3.4); LYMPH % 20.5 % (22.0-35.0); MEAN CELL VOLUME 91.9 fL (80.0-105.0); MEAN CORPUSCULAR HEMOGLOBIN 33.6 pg (25.0-35.0); MEAN CORPUSCULAR HGB CONC 36.6 g/dl (31.0-37.0); MEAN PLATELET VOLUME 9.3 fl (7.0-11.0); MONO # 0.6 (0.1-0.6); MONO % 7.6 % (1.0-6.0); PLATELET COUNT 301 10^3/uL (120.0-450.0); RBC 4.55 10^6/uL (3.5-6.1); RED CELL DISTRIBUTION WIDTH 12.1 % (11.5-14.5); WHITE BLOOD COUNT 7.4 10^3/ul (4.5-11.0)
--- NOTE | 2017-03-21 01:11 | CT ---
EXAM: CT Head Without Intravenous Contrast CLINICAL HISTORY: The patient age is 37 years old and is male; Signs and symptoms; Other: Nausea, vomiting; Prior surgery; Surgery date: 3-7 days post-operative; Surgery type: Craniotomy; Additional info: N/v, post craniotomy Facility exam id and description: Ct heads head w/o contrast TECHNIQUE: Axial computed tomography images of the head/brain without intravenous contrast. This CT exam was performed using one or more of the following dose reduction techniques: automated exposure control, adjustment of the mA and/or kV according to patient size, and/or use of iterative reconstruction technique. EXAM DATE/TIME: 03/20/2017 11:24 PM COMPARISON: CT - HEAD W/O CONTRAST 03/18/2017 9:25:46 AM FINDINGS: Brain: Again visualized is a right-sided craniotomy, with right-sided pneumocephalus. A right cerebral subdural hematoma is again visualized. Within the right frontal convexity, this has a maximal thickness of 8 mm, without progression compared to the previous exam. The white-hansen differentiation is preserved demonstrating no acute territorial type infarct. Midline shift: There is mild midline shift to left of 4 mm, which is stable. Ventricles: No ventriculomegaly. Bones/joints: The calvarium demonstrates no evidence for a depressed fracture. Soft tissues: There is swelling and foci of gas within the right side of the scalp, with surgical brigida. These postoperative changes are stable. Sinuses: Unremarkable as visualized. No acute sinusitis. Mastoid air cells: No mastoid effusion. IMPRESSION: 1. Again visualized is a right-sided craniotomy, with right-sided pneumocephalus. 2. A right cerebral subdural hematoma is again visualized. Within the right frontal convexity, this has a maximal thickness of 8 mm, without progression compared to the previous exam. 3. There is mild midline shift to left of 4 mm, which is stable.
[2017-03-21] MEDS ORDERED: HYDROmorphone 1 mg/ml ISec IVP STA (02:01)
--- NOTE | 2017-03-21 02:20 | CP.PCM.HP ---
<DAVE STEVENS - Last Filed: 03/21/17 04:02> History of Present Illness - History of Present Illness History of Present Illness: CC: Headache HPI: Mr. Carlson is a 37 year old male with a past medical history significant for subdural hematoma s/p craniotomy on 03/17/2017 who presented to the ED with a complaint of a headache. He states that the headache started around 1700 on with no associated changes in vision, LOC, or vertigo. He reports that the pain from the headache was a 10/10 and is located primarily in the front of his headache with no radiation. He took Keppra around the time his headache started , thinking it was pain medication, with no relief. He also has had a NBNB vomiting five times since his headache began. Currently, patients pain is adequately controlled. He denies fever, changes in vision, neck pain, chest pain, shortness of breath, abdominal pain, N/V, diarrhea, or any numbness/tingling/weakness to any extremity. 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 Allergies: NKDA Meds: Keppra Present on Admission - Present on Admission Any Indicators Present on Admission: No Review of Systems - Review of Systems Review of Systems: please refer to HPI Past Patient History - Infectious Disease Hx of Infectious Diseases: None - Past Social History Smoking Status: Unknown If Ever Smoked - CARDIAC Hx Cardiac Disorders: No - PULMONARY Hx Respiratory Disorders: No - NEUROLOGICAL Hx Neurological Disorder: No - RENAL Hx Renal Failure: No - ENDOCRINE/METABOLIC Hx Endocrine Disorders: No - HEMATOLOGICAL/ONCOLOGICAL Hx Blood Disorders: No - MUSCULOSKELETAL/RHEUMATOLOGICAL Hx Falls: No - GASTROINTESTINAL Hx Gastrointestinal Disorders: No - PSYCHIATRIC Hx Substance Use: No - SURGICAL HISTORY Hx Surgeries: Yes Other/Comment: s/p craniotomy - ANESTHESIA Hx Anesthesia: No Meds Home Medications: Home Medication List Medication Instructions Recorded Confirmed Type Acetaminophen with Codeine 1 each PO Q6 PRN #12 tablet 03/21/17 Rx [Tylenol with Codeine #3 Tablet] Ondansetron [Zofran Odt] 4 mg PO Q6 PRN #14 odt 03/21/17 Rx Allergies/Adverse Reactions: Allergies Allergy/AdvReac Type Severity Reaction Status Date / Time No Known Allergies Allergy Verified 03/20/17 22:59 Physical Exam - Constitutional Appears: No Acute Distress - Head Exam Head Exam: NORMOCEPHALIC. absent: ATRAUMATIC Additional comments: [place] along R temporal region from craniotomy; noted bruising and lacerations unchanged from previous admission - Eye Exam Eye Exam: Conjunctival injection, EOMI, Normal appearance, Periorbital tenderness, PERRL. absent: Scleral icterus Pupil Exam: NORMAL ACCOMODATION, PERRL - ENT Exam ENT Exam: Mucous Membranes Moist, Normal Exam, Normal Oropharynx - Neck Exam Neck exam: Positive for: Full Rom. Negative for: Lymphadenopathy, Meningismus, Tenderness - Respiratory Exam Respiratory Exam: Clear to Auscultation Bilateral, NORMAL BREATHING PATTERN. absent: Rales, Rhonchi, Wheezes, Respiratory Distress - Cardiovascular Exam Cardiovascular Exam: REGULAR RHYTHM, RRR, +S1, +S2 - GI/Abdominal Exam GI & Abdominal Exam: Normal Bowel Sounds, Soft. absent: Distended, Firm, Guarding, Tenderness - Extremities Exam Extremities exam: Positive for: normal capillary refill, pedal pulses present. Negative for: calf tenderness, pedal edema - Back Exam Back exam: absent: CVA tenderness (L), CVA tenderness (R), paraspinal tenderness , vertebral tenderness - Neurological Exam Neurological exam: Alert, CN II-XII Intact, Oriented x3 Additional comments: GCS: 15 with no focal neurologic deficits - Psychiatric Exam Psychiatric exam: Normal Affect, Normal Mood - Skin Skin Exam: Dry, Intact, Normal Color, Warm Results - Vital Signs Recent Vital Signs: Last Vital Signs Temp 98.2 F 03/20/17 23:01 Pulse 83 03/20/17 23:01 Resp 18 03/20/17 23:01 BP 128/78 03/20/17 23:01 Pulse Ox 96 03/20/17 23:01 - Labs Result Diagrams: 03/20/17 23:45 03/20/17 23:45 Assessment & Plan - Assessment and Plan (Free Text) Assessment: 37 year old male with a past medical history significant for subdural hematoma s /p craniotomy on 03/17/2017 who presented to the ED with a complaint of a headache. Plan: 1. Headache -CT scan negative for any acute processes -Neurosurgery states patient is safe for discharge with outpatient follow up -given one dose of morphine and one dose of dilaudid in ED -Tylenol for mild pain, Motrin for moderate pain, and Toradol for severe pain -zofran prn 2. GI/DVT Prophylaxis -Protonix/DVT Patient seen and case discussed with attending, Dr. Griffin. - Date & Time Date: 03/21/17 Time: 02:38 <Hanna Griffin - Last Filed: 03/21/17 06:16> Results - Vital Signs Recent Vital Signs: Last Vital Signs Temp 98.2 F 03/20/17 23:01 Pulse 84 03/21/17 02:55 Resp 16 03/21/17 03:13 BP 136/74 03/21/17 02:55 Pulse Ox 99 03/21/17 02:55 - Labs Result Diagrams: 03/20/17 23:45 03/20/17 23:45 Attending/Attestation - Attestation I have personally seen and examined this patient.: Yes I have fully participated in the care of the patient.: Yes I have reviewed all pertinent clinical information: Yes Notes (Text): 03/21/17 06:15 Patient was seen when he was in bed # 364-01. Agree with history, physical examination, assessment and plan.
[2017-03-21] MEDS: Sodium Chloride 0.9% 1,000 ML IV SCH ×2 (02:44→13:16)
[2017-03-21 07:02] LABS: BASO # 0.01 K/mm3 (0.0-2.0); BASO % 0.1 % (0.0-3.0); GRAN # 5.85 (1.4-6.5); GRAN % 69.7 % (50.0-68.0); HEMOGLOBIN 14.8 gm/dL (14.0-18.0); LYMPH % 23.5 % (22.0-35.0); MEAN CELL VOLUME 91.9 fL (80.0-105.0); MEAN CORPUSCULAR HEMOGLOBIN 32.5 pg (25.0-35.0); MEAN CORPUSCULAR HGB CONC 35.3 g/dl (31.0-37.0); MEAN PLATELET VOLUME 9.4 fl (7.0-11.0); MONO # 0.6 (0.1-0.6); MONO % 6.7 % (1.0-6.0); PLATELET COUNT 295 10^3/uL (120.0-450.0); RBC 4.56 10^6/uL (3.5-6.1); RED CELL DISTRIBUTION WIDTH 12.3 % (11.5-14.5); WHITE BLOOD COUNT 8.4 10^3/ul (4.5-11.0)
[2017-03-21 07:29] LABS: ALB/GLOB RATIO 1.4 (1.1-1.8); ALT/SGPT 33 U/L (7-56); AST/SGOT 31 U/L (15-59); BLOOD UREA NITROGEN 8 mg/dL (7-21); CALCIUM 9.3 mg/dL (8.4-10.5); GFR AFRICAN-AMERICAN > 60; GFR NON-AFRICAN AMERICAN > 60
[2017-03-21 07:54] VITALS: RESP 20
[2017-03-21] MEDS ORDERED: Multivitamin With Minerals Tab PO SCH (10:00)
[2017-03-21 16:50] VITALS: BP 130/70; PULSE 70; TEMP 98.6; O2SAT 98
--- NOTE | 2017-03-25 14:23 | CP.PCM.DIS ---
Provider - Provider Date of Admission: 03/21/17 02:09 Attending physician: Clair Zaragoza MD Primary care physician: none Time Spent in preparation of Discharge (in minutes): 25 Diagnosis - Discharge Diagnosis (1) Headache Status: Acute Hospital Course - Lab Results Lab Results: Most Recent Lab Values WBC 8.4 10^3/ul (4.5-11.0) 03/21/17 06:30 RBC 4.56 10^6/uL (3.5-6.1) 03/21/17 06:30 Hgb 14.8 gm/dL (14.0-18.0) 03/21/17 06:30 Hct 41.9 % (42.0-52.0) L 03/21/17 06:30 MCV 91.9 fL (80.0-105.0) 03/21/17 06:30 MCH 32.5 pg (25.0-35.0) 03/21/17 06:30 MCHC 35.3 g/dl (31.0-37.0) 03/21/17 06:30 RDW 12.3 % (11.5-14.5) 03/21/17 06:30 Plt Count 295 10^3/uL (120.0-450.0) 03/21/17 06:30 MPV 9.4 fl (7.0-11.0) 03/21/17 06:30 Gran % 69.7 % (50.0-68.0) H 03/21/17 06:30 Lymph % (Auto) 23.5 % (22.0-35.0) 03/21/17 06:30 [place] % (Auto) 6.7 % (1.0-6.0) H 03/21/17 06:30 Eos % (Auto) 0.0 % (1.5-5.0) L 03/21/17 06:30 Baso % (Auto) 0.1 % (0.0-3.0) 03/21/17 06:30 Gran # 5.85 (1.4-6.5) 03/21/17 06:30 Lymph # 2.0 (1.2-3.4) 03/21/17 06:30 [place] # 0.6 (0.1-0.6) 03/21/17 06:30 Eos # 0.0 (0.0-0.7) 03/21/17 06:30 Baso # 0.01 K/mm3 (0.0-2.0) 03/21/17 06:30 Sodium 139 mmol/L (132-148) 03/21/17 06:30 Potassium 3.9 mmol/L (3.6-5.0) 03/21/17 06:30 Chloride 98 mmol/L (95-110) 03/21/17 06:30 Carbon Dioxide 29 mmol/L (21-33) 03/21/17 06:30 Anion Gap 16 (10-20) 03/21/17 06:30 BUN 8 mg/dL (7-21) 03/21/17 06:30 Creatinine 0.8 mg/dL (0.5-1.4) 03/21/17 06:30 Est GFR ( Amer) > 60 03/21/17 06:30 Est GFR (Non-Af Amer) > 60 03/21/17 06:30 Random Glucose 113 mg/dL (70-110) H 03/21/17 06:30 Calcium 9.3 mg/dL (8.4-10.5) 03/21/17 06:30 Total Bilirubin 0.6 mg/dL (0.2-1.3) 03/21/17 06:30 AST 31 U/L (15-59) 03/21/17 06:30 ALT 33 U/L (7-56) 03/21/17 06:30 Alkaline Phosphatase 62 U/L (38-133) 03/21/17 06:30 Total Protein 6.9 g/dL (5.8-8.3) 03/21/17 06:30 Albumin 4.0 g/dL (3.0-4.8) 03/21/17 06:30 Globulin 2.9 gm/dL 03/21/17 06:30 Albumin/Globulin Ratio 1.4 (1.1-1.8) 03/21/17 06:30 Lipase 68 U/L (23-300) 03/20/17 23:45 Alcohol, Quantitative < 10 mg/dL (0-10) 03/20/17 23:45 - Hospital Course Hospital Course: Patient is a 37 year old male with past medical history for subdural hematoma s/ p craniotomy on 03/17/2017 who presented to the emergency department complaining of headache. Patient reportedly mistakenly took keppra instead of pain medication. A CT of his head showed no acute changes in his previous CT head from prior admission. CT as noted to show right-sided craniotomy with right- sided pneumocephalus, stable mild midline shift of 4mm, and right cerebral subdural hematoma without progression. The patient was admitted for observation and given medication for his headache. On 03/21/17 the patient reported having diminishment of his presenting symptoms. He was evaluated to be hemodynamically stable and neurologically at baseline and was discharged with instructions for follow up outpatient. - Date & Time of H&P Date of H&P: 03/21/17 Time of H&P: 02:15 Discharge Exam - Head Exam Head Exam: NORMOCEPHALIC. absent: ATRAUMATIC Additional comments: surgicla scar noted along right parietal aspect of skull with stables in place noted to be clean, dry and intact - Eye Exam Eye Exam: EOMI, PERRL - Neck Exam Neck exam: Full Rom - Respiratory Exam Respiratory Exam: Clear to PA & Lateral, NORMAL BREATHING PATTERN, UNREMARKABLE - Cardiovascular Exam Cardiovascular Exam: REGULAR RHYTHM, +S1, +S2 - GI/Abdominal Exam GI & Abdominal Exam: Normal Bowel Sounds, Unremarkable - Extremities Exam Extremities exam: full ROM, normal capillary refill, pedal pulses present - Neurological Exam Neurological exam: Alert, CN II-XII Intact, Normal Gait, Oriented x3, Reflexes Normal - Psychiatric Exam Psychiatric exam: Normal Affect, Normal Mood - Skin Skin Exam: Dry, Intact, Normal Color, Warm Discharge Plan - Discharge Medications Prescriptions: Ibuprofen [Motrin Tab] 600 mg PO Q6H PRN #30 tab PRN Reason: Pain, Moderate (4-7) - Follow Up Plan Condition: FAIR Disposition: HOME/ ROUTINE Instructions: Subdural Hematoma (DC), Acute Headache (DC) Additional Instructions: 1. Please follow up with the [facility] to establish care with a primary care provider. Please call Dr. Garcia's (the neurosurgeon) office for a follow up appointment within 2 weeks. 2. Return to the emergency room if you have any worsening of you symptoms or condition, especially if you notice any weakness or headache that is not subsided with the recommended pain medication. 3. Refrain from alcohol and tobacco use. 4. Refrain from illicit drug use, especially cocaine 5. Okay to shower, gently clean surgical site with soap and water. Pat dry. For further questions contact Dr. Garcia. 6. For pain please take Tylenol or Mortrin as directed.
== END 2017-03-21 17:09 | disposition home or self-care (01) ==
LOC: ED 22:49 → ERH 03-21 02:09 → 3RNO 03-21 03:25
PROVIDERS: ADMIT Internal Medicine; ATTEND Internal Medicine
DX: R51 Headache (principal); S06.5X9A Traumatic subdural hemorrhage with loss of consciousness of unspecified duration, initial encounter; G93.89 Other specified disorders of brain; F14.90 Cocaine use, unspecified, uncomplicated; Z72.89 Other problems related to lifestyle
CPT/HCPCS: 36415; 70450; 80053; 80320; 83690; 85025; 96374; 96375; 99284; C9113; G0378; J1170; J2270; J2405; J7040

== ENCOUNTER 2017-03-26 20:18 | Inpatient (IN) | payer OTHER ==
[2017-03-26 20:19] VITALS: BMI 25.8
--- NOTE | 2017-03-26 21:44 | ED PDOC ---
Arrival/HPI - General Chief Complaint: Headache Time Seen by Provider: 03/26/17 21:09 Historian: Patient, Spouse - History of Present Illness Narrative History of Present Illness (Text): 03/26/17 22:24 37 year old male, whose past medical history includes evacuation of right-sided subdural hematoma, who presents to the Emergency department accompanied by complaining of right-sided headache since for 2 days, worsening this morning. states patient was discharged from the hospital 6 days prior following surgery and was doing well. reports patient began complaining of right-sided headaches 2 days prior and has been having episodes of altered speech and double vision. Patient also complaining of dizziness. states patient has been taking Ibuprofen 600 mg for pain with minimal relief. Patient denies any fever, chills, chest pain, shortness of breath, nausea, vomiting, diarrhea, or any other complaints. Time/Duration: Other (2 days) Symptom Onset: Gradual Symptom Course: Worsening Activities at Onset: Rest, Light Context: Home Past Medical History - Provider Review Nursing Documentation Reviewed: Yes - Past History Past History: Unable to Obtain - Infectious Disease Hx of Infectious Diseases: None - Cardiac Hx Cardiac Disorders: No - Pulmonary Hx Respiratory Disorders: No - Neurological Hx Neurological Disorder: No - HEENT Hx HEENT Disorder: No - Renal Hx Renal Failure: No - Endocrine/Metabolic Hx Endocrine Disorders: No - Hematological/Oncological Hx Blood Disorders: No - Integumentary Hx Dermatological Disorder: No - Musculoskeletal/Rheumatological Hx Falls: No - Gastrointestinal Hx Gastrointestinal Disorders: No - Psychiatric Hx Psychophysiologic Disorder: No Hx Substance Use: No - Surgical History Other/Comment: s/p craniotomy - Anesthesia Hx Anesthesia: Yes Hx Anesthesia Reactions: No Family/Social History - Physician Review Nursing Documentation Reviewed: Yes Family/Social History: No Known Family HX Smoking Status: Unknown If Ever Smoked Hx Alcohol Use: Yes Hx Substance Use: No Allergies/Home Meds Allergies/Adverse Reactions: Allergies No Known Allergies Allergy (Verified 03/26/17 20:31) Review of Systems - Physician Review All systems were reviewed & negative as marked: Yes - Review of Systems Constitutional: absent: Fevers Respiratory: absent: SOB Cardiovascular: absent: Chest Pain Gastrointestinal: absent: Diarrhea, Nausea, Vomiting Musculoskeletal: absent: Back Pain, Neck Pain Neurological: Headache (+right-sided headaches), Dizziness, Speech Changes (+ altered speech) Endocrine: Normal Hemo/Lymphatic: Normal Psychiatric: Normal Physical Exam Vital Signs Reviewed: Yes Vital Signs Temp Pulse Resp BP Pulse Ox 03/26/17 20:31 98.6 F 70 19 128/82 97 Temperature: Afebrile Blood Pressure: Normal Pulse: Regular Respiratory Rate: Normal Appearance: Positive for: Well-Appearing Pain Distress: None Mental Status: Positive for: Alert and Oriented X 3 - Systems Exam Head: Present: Atraumatic, Normocephalic, Other (Right scalp brigida) Pupils: Present: PERRL Extroacular Muscles: Present: EOMI Conjunctiva: Present: Normal Mouth: Present: Moist Mucous Membranes Neck: Present: Normal Range of Motion Respiratory/Chest: Present: Clear to Auscultation, Good Air Exchange. No: Respiratory Distress, Accessory Muscle Use Cardiovascular: Present: Regular Rate and Rhythm, Normal S1, S2. No: Murmurs Abdomen: Present: Normal Bowel Sounds. No: Tenderness, Distention, Peritoneal Signs Back: Present: Normal Inspection Upper Extremity: Present: Normal Inspection. No: Cyanosis, Edema Lower Extremity: Present: Normal Inspection. No: Edema Neurological: Present: GCS=15, CN II-XII Intact, Speech Normal Skin: Present: Warm, Dry, Normal Color. No: Rashes Psychiatric: Present: Alert, Oriented x 3, Normal Insight, Normal Concentration Medical Decision Making ED Course and Treatment: 03/26/17 22:17 Impression: 37 year old male presents complaining of right-sided headache and dizziness. Plan: -- Head CT -- EKG -- Labs -- Reassess and disposition Prior Visits: Notes and results from previous visits were reviewed. On 03/20/17 patient came in complaining of headaches, nausea, and vomiting for the past day. Patient was hospitalized. Progress Notes: Reviewed EKG, NSR at 66 bpm. Sinus arrhythmia. Non-specific ST/T wave changes. 03/26/17 23:46 Reviewed radiology, CT Head shows: 1. A right-sided craniotomy defect is again visualized. Pneumocephalus is again visualized, most significant underlying the craniotomy defect. This has mildly improved. 2. There is midline shift to the left of approximately 5-6 mm. There is a minimal progression. 3. Subdural hemorrhage of heterogeneous density is visualized within the right frontal and parietal convexities, consistent with subacute hemorrhage. This has a maximal thickness of 8 mm within the right frontal convexity, without significant progression. There is a mild relative decrease in density of the hemorrhage compared to prior study, consistent with aging of the subdural hemorrhage. 4. Continued follow-up with CT is recommended. 03/27/17 00:[address] Belcher, who is aware and agrees with plan. Accepts pt in to hospitalist service. Pt will go to [facility] observation for intractable headache s/p subdural hematoma evacuation. resident care aide notified. Pt is no acute distress. Discussed results and hospital observation plan with pt and spouse, who are aware and verbalize understanding. - Lab Interpretations Lab Results: 03/26/17 21:39 03/26/17 21:39 Lab Results 03/26/17 21:39: WBC 6.3 D, RBC 4.71, Hgb 15.3, Hct 43.9, MCV 93.2, MCH 32.5, MCHC 34.9, RDW 12.5, Plt Count 357, MPV 9.3 03/26/17 21:39: Sodium 139, Potassium 4.1, Chloride 96 L, Carbon Dioxide 32, Anion Gap 15, BUN 16, Creatinine 0.9, Est GFR ( Amer) > 60, Est GFR (Non- Af Amer) > 60, Random Glucose 111 H, Calcium 9.7, Total Bilirubin 0.5, AST 22, ALT 30, Alkaline Phosphatase 63, Total Protein 7.6, Albumin 4.5, Globulin 3.1, Albumin/Globulin Ratio 1.5 I have reviewed the lab results: Yes - RAD Interpretation Narrative RAD Interpretations (Text): CT Head shows: Brain: Pneumocephalus is again visualized, most significant underlying the craniotomy defect. This has mildly improved. Subdural hemorrhage of heterogeneous density is visualized within the right frontal and parietal convexities, consistent with subacute hemorrhage. This has a maximal thickness of 8 mm within the right frontal convexity, without significant progression. There is a mild relative decrease in density of the hemorrhage compared to prior study, consistent with aging of the subdural hemorrhage. The white-hansen differentiation is preserved demonstrating no acute territorial type infarct. Midline shift: There is midline shift to the left of approximately 5-6 mm. There is a minimal progression. Ventricles: No ventriculomegaly. Bones/joints: A right-sided craniotomy defect is again visualized. Soft tissues: There is soft tissue swelling of the right side of the scalp with foci of gas and brigida. Vasculature: There is atherosclerotic calcification of the cavernous internal carotid arteries. Sinuses: There is minimal mucosal thickening of scattered ethmoid air cells. Mastoid air cells: No mastoid effusion. IMPRESSION: 1. A right-sided craniotomy defect is again visualized. Pneumocephalus is again visualized, most significant underlying the craniotomy defect. This has mildly improved. 2. There is midline shift to the left of approximately 5-6 mm. There is a minimal progression. 3. Subdural hemorrhage of heterogeneous density is visualized within the right frontal and parietal convexities, consistent with subacute hemorrhage. This has a maximal thickness of 8 mm within the right frontal convexity, without significant progression. There is a mild relative decrease in density of the hemorrhage compared to prior study, consistent with aging of the subdural hemorrhage. 4. Continued follow-up with CT is recommended. Radiology Orders: 03/26/17 21:36 HEAD W/O CONTRAST [CT] Stat Email Production Specialist: Radiologist - Medication Orders Current Medication Orders: Folic Acid (Folic Acid) 1 mg PO DAILY MARLENI Ketorolac Tromethamine (Toradol) 15 mg IVP Q6H PRN PRN Reason: Pain, moderate (4-7) Levetiracetam (Keppra) 250 mg PO BID MARLENI Multivitamins/Minerals (Therapeutic-M Tab) 1 tab PO DAILY MARLENI Pantoprazole Sodium (Protonix Inj) 40 mg IVP DAILY MARLENI Thiamine HCl (Vitamin B1 Tab) 100 mg PO DAILY MARLENI Discontinued Medications Morphine Sulfate (Morphine) 2 mg IVP STAT STA Stop: 03/26/17 23:08 Last Admin: 03/26/17 23:35 Dose: 2 mg - Scribe Statement The provider has reviewed the documentation as recorded by the Jenifer Aquino training under Nayla Eddy Provider Scribe Attestation: All medical record entries made by the Scribe were at my direction and personally dictated by me. I have reviewed the chart and agree that the record accurately reflects my personal performance of the history, physical exam, medical decision making, and the department course for this patient. I have also personally directed, reviewed, and agree with the discharge instructions and disposition. Disposition/Present on Arrival - Present on Arrival Any Indicators Present on Arrival: No History of DVT/PE: No History of Uncontrolled Diabetes: No Urinary Catheter: No History of Decub. Ulcer: No History Surgical Site Infection Following: Orthopedic Procedures - Disposition Have Diagnosis and Disposition been Completed?: Yes Diagnosis: S/P craniotomy, Subdural hematoma, Intractable headache Disposition: HOSPITALIZED Disposition Time: 00:30 Patient Plan: Observation Condition: STABLE Forms: [employer] ([employer])
[2017-03-26 21:57] LABS: HEMOGLOBIN 15.3 g/dL (14.0-18.0); MEAN CELL VOLUME 93.2 fl (80.0-105.0); MEAN CORPUSCULAR HEMOGLOBIN 32.5 pg (25.0-35.0); MEAN CORPUSCULAR HGB CONC 34.9 g/dl (31.0-37.0); MEAN PLATELET VOLUME 9.3 fl (7.0-11.0); RBC 4.71 10^6/uL (3.5-6.1); RED CELL DISTRIBUTION WIDTH 12.5 % (11.5-14.5); WHITE BLOOD COUNT 6.3 10^3/ul (4.5-11.0)
[2017-03-26 22:00] LABS: ALB/GLOB RATIO 1.5 (1.1-1.8); ALBUMIN 4.5 g/dL (3.0-4.8); ALT/SGPT 30 U/L (7-56); AST/SGOT 22 U/L (15-59); BLOOD UREA NITROGEN 16 mg/dL (7-21); CALCIUM 9.7 mg/dL (8.4-10.5); GFR AFRICAN-AMERICAN > 60; GFR NON-AFRICAN AMERICAN > 60
[2017-03-26] MEDS ORDERED: Morphine 2 mg/ml ISec IVP STA (23:07)
--- NOTE | 2017-03-26 23:09 | CT ---
EXAM: CT Head Without Intravenous Contrast CLINICAL HISTORY: The patient age is 37 years old and is male; Condition or disease; Other: History of bleed-surgery 03/17/17; Prior surgery; Surgery date: <1 month; Surgery type: Pt had bleed-surgery done 03/17/17; Additional info: S/P subdural hematoma/headache Facility exam id and description: Ct heads head w/o contrast TECHNIQUE: Axial computed tomography images of the head/brain without intravenous contrast. This CT exam was performed using one or more of the following dose reduction techniques: automated exposure control, adjustment of the mA and/or kV according to patient size, and/or use of iterative reconstruction technique. EXAM DATE/TIME: 03/26/2017 9:36 PM COMPARISON: CT - HEAD W/O CONTRAST 03/21/2017 12:08:01 AM FINDINGS: Brain: Pneumocephalus is again visualized, most significant underlying the craniotomy defect. This has mildly improved. Subdural hemorrhage of heterogeneous density is visualized within the right frontal and parietal convexities, consistent with subacute hemorrhage. This has a maximal thickness of 8 mm within the right frontal convexity, without significant progression. There is a mild relative decrease in density of the hemorrhage compared to prior study, consistent with aging of the subdural hemorrhage. The white-hansen differentiation is preserved demonstrating no acute territorial type infarct. Midline shift: There is midline shift to the left of approximately 5-6 mm. There is a minimal progression. Ventricles: No ventriculomegaly. Bones/joints: A right-sided craniotomy defect is again visualized. Soft tissues: There is soft tissue swelling of the right side of the scalp with foci of gas and brigida. Vasculature: There is atherosclerotic calcification of the cavernous internal carotid arteries. Sinuses: There is minimal mucosal thickening of scattered ethmoid air cells. Mastoid air cells: No mastoid effusion. IMPRESSION: 1. A right-sided craniotomy defect is again visualized. Pneumocephalus is again visualized, most significant underlying the craniotomy defect. This has mildly improved. 2. There is midline shift to the left of approximately 5-6 mm. There is a minimal progression. 3. Subdural hemorrhage of heterogeneous density is visualized within the right frontal and parietal convexities, consistent with subacute hemorrhage. This has a maximal thickness of 8 mm within the right frontal convexity, without significant progression. There is a mild relative decrease in density of the hemorrhage compared to prior study, consistent with aging of the subdural hemorrhage. 4. Continued follow-up with CT is recommended.
--- NOTE | 2017-03-27 02:04 | CP.PCM.HP ---
<STEVENSDAVE - Last Filed: 03/27/17 02:04> History of Present Illness - History of Present Illness History of Present Illness: CC: Headache HPI: Mr. Carlson is a 37 year old male with a past medical history significant for subdural hematoma s/p craniotomy on 03/17/2017 who presented to the ED with a complaint of worsening headache. Patients cousin was at bedside and provided pertinent HPI as she is his livestock caretaker. She reports that when she came home from work later in the afternoon on 03/26/2017, she noticed that the patient had an acute change in his pain. She reports that when he is in pain, his mental status changes and he becomes more withdrawn and is less likely to follow her commands. When patient had difficulty lifting his hands in a coordinated fashion , had diplopia and started to slur his speech, she decided to take him in for evaluation. Patient also reports numbness of L hand but reports that this sometimes happens when he sleeps with it underneath him. She reports he was at his baseline mental status, which is without any of the aforementioned symptoms , when she left work earlier in the day. He was recently seen at [facility] for similar complaints on 03/21/2017 and was discharged home with motrin and keppra , according to her. She denies any associated gait imbalance, LOC or vertigo. A CT head was done in the ED and showed mild progression of midline shift and shows mild improvement of previous findings. Currently, patients pain is adequately controlled and he was resting comfortably during interview. He denies any fever, neck pain, chest pain, shortness of breath, abdominal pain, N/V, diarrhea, or weakness of any extremity. 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 Allergies: NKDA Home Meds: As per MAR Present on Admission - Present on Admission Any Indicators Present on Admission: No Review of Systems - Review of Systems Review of Systems: As per HPI Past Patient History - Infectious Disease Hx of Infectious Diseases: None - Past Social History Smoking Status: Unknown If Ever Smoked - CARDIAC Hx Cardiac Disorders: No - PULMONARY Hx Respiratory Disorders: No - NEUROLOGICAL Hx Neurological Disorder: No - HEENT Hx HEENT Problems: No - RENAL Hx Renal Failure: No - ENDOCRINE/METABOLIC Hx Endocrine Disorders: No - HEMATOLOGICAL/ONCOLOGICAL Hx Blood Disorders: No - INTEGUMENTARY Hx Dermatological Problems: No - MUSCULOSKELETAL/RHEUMATOLOGICAL Hx Falls: No - GASTROINTESTINAL Hx Gastrointestinal Disorders: No - PSYCHIATRIC Hx Psychophysiologic Disorder: No Hx Substance Use: No - SURGICAL HISTORY Other/Comment: s/p craniotomy - ANESTHESIA Hx Anesthesia: Yes Hx Anesthesia Reactions: No Meds Allergies/Adverse Reactions: Allergies Allergy/AdvReac Type Severity Reaction Status Date / Time No Known Allergies Allergy Verified 03/26/17 20:31 Physical Exam - Constitutional Appears: No Acute Distress - Head Exam Head Exam: NORMOCEPHALIC Additional comments: Surgical incision on R cranium - Eye Exam Eye Exam: Conjunctival injection, EOMI, Normal appearance, Periorbital tenderness, PERRL. absent: Nystagmus, Periorbital swelling, Scleral icterus Pupil Exam: NORMAL ACCOMODATION, PERRL. absent: Fixed, Irregular, Miosis, Mydriatic, Unequal - ENT Exam ENT Exam: Mucous Membranes Moist, Normal Exam - Neck Exam Neck exam: Positive for: Full Rom, Normal Inspection. Negative for: Meningismus , Tenderness - Respiratory Exam Respiratory Exam: Clear to Auscultation Bilateral, NORMAL BREATHING PATTERN. absent: Chest Wall Tenderness, Rales, Rhonchi, Wheezes, Respiratory Distress - Cardiovascular Exam Cardiovascular Exam: REGULAR RHYTHM, RRR, +S1, +S2. absent: Tachycardia - GI/Abdominal Exam GI & Abdominal Exam: Normal Bowel Sounds, Soft. absent: Distended, Firm, Guarding, Tenderness - Exam Exam: absent: Bladder Distension - Extremities Exam Extremities exam: Positive for: normal capillary refill, normal inspection, pedal pulses present. Negative for: calf tenderness, pedal edema - Back Exam Back exam: absent: CVA tenderness (L), CVA tenderness (R) - Neurological Exam Neurological exam: Oriented x3 - Expanded Neurological Exam Expanded Cranial nerves: Nystagmus: Normal, Tongue Deviation: Normal Cerebellar Function: Finger to Nose: Normal, Heel to Collins: Normal Neuro motor strength exam: Left Upper Extremity: 5, Right Upper Extremity: 5, Left Lower Extremity: 5, Right Lower Extremity: 5 Coma Scale Eye Opening: SPONTANEOUS Coma Scale Motor Response: OBEYS COMMANDS Coma Scale Verbal: Oriented Coma Scale Total: 15 - Psychiatric Exam Psychiatric exam: Normal Affect, Normal Mood - Skin Skin Exam: Dry, Intact, Normal Color, Warm Results - Vital Signs Recent Vital Signs: Last Vital Signs Temp 98.6 F 03/26/17 20:31 Pulse 70 03/26/17 20:31 Resp 19 03/26/17 20:31 BP 128/82 03/26/17 20:31 Pulse Ox 97 03/26/17 20:31 - Labs Result Diagrams: 03/26/17 21:39 03/26/17 21:39 Assessment & Plan - Assessment and Plan (Free Text) Assessment: 7 year old male with a past medical history significant for subdural hematoma s/ p craniotomy on 03/17/2017 who presented to the ED with a complaint of worsening headache Plan: 1. Worsening Headache -see CT report -Toradol 15mg IVP Q6H PRN for pain -Neuro Checks Q4H -neurology consulted, will follow recommendations -PT/OT evaluation and treatment 2. History of Seizures -cont keppra -EEQ pending 3. GI/DVT Prophylaxis -protonix/scd's Patient seen and case discussed with attending, Dr. Belcher. - Date & Time Date: 03/27/17 Time: 02:05 Decision To Admit - Pt Status Changed To: Hospital Disposition Of: Observation - . Bed Request Type: Med/Surg <Howard Belcher P - Last Filed: 03/27/17 06:59> Results - Vital Signs Recent Vital Signs: Last Vital Signs Temp 97 F L 03/27/17 03:46 Pulse 70 03/27/17 03:46 Resp 18 03/27/17 03:46 BP 144/86 03/27/17 03:46 Pulse Ox 98 03/27/17 02:03 - Labs Result Diagrams: 03/26/17 21:39 03/26/17 21:39 Attending/Attestation - Attestation I have personally seen and examined this patient.: Yes I have fully participated in the care of the patient.: Yes I have reviewed all pertinent clinical information: Yes Notes (Text): Assessment: * Recent subdural hematoma s/p evacuation, presenting for pain, with some mental status changes, of note patient was examined in ER past morphine when his pain was better and was bit lethargic, clinically doesn't have any mennigeal signs, surgical site without any inflammation, has parasthesia in left hand, dd of s/e of keppra, subclinical seizure, local or trigeminal nerve irritation, effect of residual subdural fluid. * h/o binge alcoholism Plan * Neurocheck * Observe off morphine * PT/OT * EEG * Neurology consult * Continue home meds * See orders for detail.
[2017-03-27 07:26] LABS: BASO # 0.02 K/mm3 (0.0-2.0); BASO % 0.2 % (0.0-3.0); EOS % 0.2 % (1.5-5.0); GRAN # 5.26 (1.4-6.5); GRAN % 65.8 % (50.0-68.0); HEMOGLOBIN 15.3 g/dL (14.0-18.0); LYMPH % 25.3 % (22.0-35.0); MEAN CELL VOLUME 92.6 fl (80.0-105.0); MEAN CORPUSCULAR HEMOGLOBIN 32.3 pg (25.0-35.0); MEAN CORPUSCULAR HGB CONC 34.9 g/dl (31.0-37.0); MEAN PLATELET VOLUME 9.1 fl (7.0-11.0); MONO # 0.7 (0.1-0.6); MONO % 8.5 % (1.0-6.0); PLATELET COUNT 344 10^3/uL (120.0-450.0); RBC 4.74 10^6/uL (3.5-6.1); RED CELL DISTRIBUTION WIDTH 12.4 % (11.5-14.5)
[2017-03-27 07:40] LABS: ALB/GLOB RATIO 1.4 (1.1-1.8); ALBUMIN 4.5 g/dL (3.0-4.8); ALT/SGPT 25 U/L (7-56); AST/SGOT 30 U/L (15-59); BLOOD UREA NITROGEN 14 mg/dL (7-21); CALCIUM 9.7 mg/dL (8.4-10.5); GFR AFRICAN-AMERICAN > 60; GFR NON-AFRICAN AMERICAN > 60
[2017-03-27] MEDS ORDERED: Multivitamin With Minerals Tab PO SCH (10:00)
[2017-03-27] MEDS ORDERED: levETIRAcetam 500mg IVPB 500 MG/100 ML BAG IV STA (11:48)
--- NOTE | 2017-03-27 12:25 | CT ---
PROCEDURE: CT HEAD WITHOUT CONTRAST. HISTORY: seizures COMPARISON: None available. TECHNIQUE: Axial computed tomography images were obtained through the head/brain without intravenous contrast. Radiation dose: Total exam DLP = 879.95 mGy-cm. This CT exam was performed using one or more of the following dose reduction techniques: Automated exposure control, adjustment of the mA and/or kV according to patient size, and/or use of iterative reconstruction technique. FINDINGS: HEMORRHAGE: Decreasing size of right frontal convexity subdural hemorrhage. The subdural collection measures up to 8 mm in width. Decreasing quantity of high density blood within the subdural collection compared to examination of the prior day. No other extra-axial collection identified elsewhere. Status post right frontoparietal craniotomy. Apparent pneumocephalus beneath this craniotomy may represent packing material. There is a 6 mm midline shift towards the left, unchanged. There is no evidence downward herniation. Basilar cisterns are preserved. BRAIN: No mass effect or edema. No atrophy or chronic microvascular ischemic changes. No evidence of acute infarct. VENTRICLES: Unremarkable. No hydrocephalus. CALVARIUM: Right frontoparietal craniotomy. PARANASAL SINUSES: Unremarkable as visualized. No significant inflammatory changes. MASTOID AIR CELLS: Unremarkable as visualized. No inflammatory changes. OTHER FINDINGS: None. IMPRESSION: Decreasing size of right frontal convexity subacute subdural hemorrhage. Decreasing amount of high density blood within this collection. Status post right frontoparietal craniotomy . 6 mm midline shift towards the left. No downward herniation. The findings in this examination were communicated by telephone to Dr. Brennan at 12:20 p.m. on 03/27/2017
[2017-03-27] MEDS ORDERED: Magnesium Sulfate 1 gm in D5W 1 GM/100 ML BAG IVPB ONE (12:30)
--- NOTE | 2017-03-27 12:42 | RAD ---
PROCEDURE: CHEST RADIOGRAPH, 1 VIEW HISTORY: r/o aspiration COMPARISON: 03/17/2017 FINDINGS: LUNGS: Clear. PLEURA: No pneumothorax or pleural fluid seen. CARDIOVASCULAR: Normal. OSSEOUS STRUCTURES: No significant abnormalities. VISUALIZED UPPER ABDOMEN: Normal. OTHER FINDINGS: None. IMPRESSION: No active disease.
--- NOTE | 2017-03-27 13:13 | CP.PCM.CON ---
History of Present Illness - History of Present Illness History of Present Illness: Mr. Peguero is a 37-year-old man had a traumatic subdural hematoma while intoxicated and is now s/p craniotomy on 03/17/2017. He was placed on Keppra 250 mg BID for seizure prophylaxis. He was admitted for worsening headache and earlier this morning, he had a witnessed generalized tonic-clonic seizure with tongue biting and an MEDICAL RECORD CLERK was called. He was given ativan and loaded with another 500 mg of Keppra. Currently, the patient is somnolent, but responsive and following commands, answering questions appropriately. He continues to complain of headaches located in the frontal region. Review of Systems - Review of Systems All systems: reviewed and no additional remarkable complaints except Past Patient History - Infectious Disease Hx of Infectious Diseases: None - Past Social History Smoking Status: Never Smoked - CARDIAC Hx Cardiac Disorders: No - PULMONARY Hx Respiratory Disorders: No - NEUROLOGICAL Hx Neurological Disorder: No - HEENT Hx HEENT Problems: No - RENAL Hx Renal Failure: No - ENDOCRINE/METABOLIC Hx Endocrine Disorders: No - HEMATOLOGICAL/ONCOLOGICAL Hx Blood Disorders: No - INTEGUMENTARY Hx Dermatological Problems: No - MUSCULOSKELETAL/RHEUMATOLOGICAL Hx Falls: Yes - GASTROINTESTINAL Hx Gastrointestinal Disorders: No - PSYCHIATRIC Hx Psychophysiologic Disorder: No Hx Substance Use: Yes (cocaine) - SURGICAL HISTORY Other/Comment: s/p craniotomy - ANESTHESIA Hx Anesthesia: Yes Hx Anesthesia Reactions: No Meds Allergies/Adverse Reactions: Allergies Allergy/AdvReac Type Severity Reaction Status Date / Time No Known Allergies Allergy Verified 03/26/17 20:31 - Medications Medications: Current Medications Folic Acid (Folic Acid) 1 mg PO DAILY [facility] Last Admin: 03/27/17 12:20 Dose: Not Given Sodium Chloride (Sodium Chloride 0.9%) 1,000 mls @ 125 mls/hr IV .Q8H [facility] Magnesium Sulfate/Dextrose (Magnesium Sulfate 1 Gm/100 Ml D5w) 1 gm in 100 mls @ 100 mls/hr IVPB ONCE ONE Stop: 03/27/17 13:29 Ketorolac Tromethamine (Toradol) 15 mg IVP Q6H PRN PRN Reason: Pain, moderate (4-7) Last Admin: 03/27/17 06:47 Dose: 15 mg Levetiracetam (Keppra) 250 mg PO BID [facility] Last Admin: 03/27/17 12:20 Dose: Not Given Multivitamins/Minerals (Therapeutic-M Tab) 1 tab PO DAILY [facility] Pantoprazole Sodium (Protonix Inj) 40 mg IVP DAILY [facility] Pneumococcal Polyvalent Vaccine (Pneumovax 23 Vaccine) 0.5 ml IM .ONCE ONE Stop: 03/29/17 10:01 Thiamine HCl (Vitamin B1 Tab) 100 mg PO DAILY [facility] Physical Exam - Constitutional Appears: Well - Head Exam Additional comments: Right craniotomy with brigida noted. - Eye Exam Eye Exam: EOMI, Normal appearance, PERRL - ENT Exam ENT Exam: Mucous Membranes Moist, Normal Exam - Neck Exam Neck exam: Positive for: Normal Inspection - Cardiovascular Exam Cardiovascular Exam: REGULAR RHYTHM, +S1, +S2 - GI/Abdominal Exam GI & Abdominal Exam: Normal Bowel Sounds, Soft. absent: Tenderness - Rectal Exam Rectal Exam: Deferred - Extremities Exam Extremities exam: Positive for: normal inspection - Back Exam Back exam: NORMAL INSPECTION - Neurological Exam Neurological exam: Altered, CN II-XII Intact, Oriented x3, Reflexes Normal - Expanded Neurological Exam Expanded Patient oriented to: person, place, time Cranial nerves: EOM's Intact: Normal, Nystagmus: Normal, Tongue Deviation: Normal Ataxia: No Cerebellar Function: Finger to Nose: Normal Upper motor neuron: Babinski Sign: Abnormal Left Sensory exam: Lower Extremity Light Touch: Normal, Lower Extremity Pin Prick: Normal, Upper Extremity Light Touch: Normal, Upper Extremity Pin Prick: Normal Neuro motor strength exam: Left Upper Extremity: 5, Right Upper Extremity: 5, Left Lower Extremity: 5, Right Lower Extremity: 5 DTR: Achilles Tendon Left: 2+, Achilles Tendon Right: 2+, Bicep Left: 2+, Bicep Right: 2+, Brachioradialis Left: 2+, Brachioradialis Right: 2+, Patellar Left: 2 +, Patellar Right: 2+, Tricep Left: 2+, Tricep Right: 2+ - Psychiatric Exam Psychiatric exam: Normal Affect, Normal Mood - Skin Skin Exam: Dry, Intact, Normal Color, Warm Results - Vital Signs Recent Vital Signs: Last Vital Signs Temp 100.5 F H 03/27/17 08:17 Pulse 65 03/27/17 08:17 Resp 20 03/27/17 08:17 BP 130/80 03/27/17 08:17 Pulse Ox 98 03/27/17 08:17 - Labs Result Diagrams: 03/27/17 07:00 03/27/17 07:00 Labs: Laboratory Results - last 24 hr 03/27/17 03/27/17 03/27/17 07:00 07:00 07:00 WBC 8.0 D RBC 4.74 Hgb 15.3 Hct 43.9 MCV 92.6 MCH 32.3 MCHC 34.9 RDW 12.4 Plt Count 344 MPV 9.1 Gran % 65.8 Lymph % (Auto) 25.3 [place] % (Auto) 8.5 H Eos % (Auto) 0.2 L Baso % (Auto) 0.2 Gran # 5.26 Lymph # 2.0 [place] # 0.7 H Eos # 0.0 Baso # 0.02 Sodium 138 Potassium 3.9 Chloride 99 Carbon Dioxide 27 Anion Gap 16 BUN 14 Creatinine 0.8 Est GFR ( Amer) > 60 Est GFR (Non-Af Amer) > 60 Random Glucose 121 H Calcium 9.7 Magnesium 1.7 Total Bilirubin 0.7 AST 30 ALT 25 Alkaline Phosphatase 75 Total Protein 7.6 Albumin 4.5 Globulin 3.1 Albumin/Globulin Ratio 1.4 - Imaging and Cardiology CT scan - head Status: Image reviewed by me, Report reviewed by me (Repeat CT head shows mild improvement in midline shift compared to previous scan. No new hemorrhage noted. ) Assessment & Plan (1) Subdural hematoma Assessment and Plan: This is the underlying cause of the seizures and headaches. I recommend switching to depakote 500 mg IV Q12 hours, first dose now and discontinue Keppra. Continue close observation in the ICU. PT/OT eval and treatment, DVT Px with SQ heparin is okay since this is now 10 days after the SDH. Thank you. Status: Acute Priority: High
[2017-03-27] MEDS: Sodium Chloride 0.9% 1,000 ML IV SCH (13:38)
[2017-03-27] MEDS ORDERED: Valproate 500 MG in Sodium Chloride 0.9% 100 ML IVPB ONE (13:45)
--- NOTE | 2017-03-27 14:39 | CP.PCM.PCO ---
<Willie Brennan - Last Filed: 03/27/17 16:20> Physician Communication Note - Physician Communication Note Physician Communication Note: Please see attached section for Rapid Response Summary Summary - Summary of Event Summary of Event: Patient discovered by staff to be actively seizing, Rapid response called at 11: 37 AM. RR team responded promptly. At time of arrival, patient already given 0.5mg IV Ativan to break seizure, no seizing noted at time of arrival. Patient on side, in ictal/post-ictal state. Blood smeared on sheet without clear source or visible active bleed; per staff patient bit tongue during seizure. Vitals: T 97.9F Axillary, HR 140's on bedside monitor, BP 116/62, O2 Sats >= 95 % on 3L NC, Fingerstick glucose 124 Gen: ictal/post-ictal, initially unresponsive to verbal and noxious physical stimuli, positioned on side HEENT: PERRL, unable to assess EOMI as not following commands, not moving eyes to avoid direct light challenge for PERRL assessment; teeth clenched, minimal blood suctioned with yankouser, no blood actively oozing from mouth Neck: No JVD, no meningeal signs, not held rigidly Pulm: normal breathing pattern, no tachypnea, no adryan cyanosis, CTAB no w/r/r while lying on left side Cardio: Tachycardic, Regular rhythm, +S1/2, No adryan murmurs, no JVD Abd: Soft, not distended Extremities: initially, no spontaneous movement, no pedal edema, help loosely Neuro: Not following commands, but maintaining breathing pattern, PERRL, no spontaneous extremity movement. Patient remained hemodynamically stable throughout, began to exhibit purposeful movements (trying to roll onto back or stomach) but remained post-ictal, not comprehending/not following commands, and unresponsive to verbal stimuli. Patient given another 1.5mg IV Ativan, and after discussion between Neurosurg and Primary team, 500mg IV Keppra x1 ordered (was on 250mg IV BID). As per Neurosurg, no active surgical intervention at this time, and there is suspicion that the patient is non-compliant with his anti-seizure medications when outpatient. CT Head and CXR were obtained to rule out new/worsening brain hemorrhage and aspiration, respectively. CT head was read by radiology as no acute events, SDH slightly smaller as compared to prior imaging. CXR was read as no active disease; no infiltrates noted. Neurology notified of event. Patient accepted to ICU for further monitoring, and transported there. Made NPO and started on IVF NS 100cc/hr. Patient seen, reviewed, and discussed with attending, Dr. Crowley. <Caty Crowley - Last Filed: 03/27/17 19:28> Attending/Attestation - Attestation I have personally seen and examined this patient.: Yes I have fully participated in the care of the patient.: Yes I have reviewed all pertinent clinical information: Yes Notes (Text): 03/27/17 19:12 Note: RR 16 Ativan 0.5 mg was given iv already,additional dose of 1.5 mg was ordered iv. IMP: Seizure episode PLAN: as already noted pt was transferred to the ICU.
--- NOTE | 2017-03-27 15:20 | CP.PCM.PN ---
Subjective - Date & Time of Evaluation Date of Evaluation: 03/27/17 Time of Evaluation: 15:19 - Subjective Subjective: admitted with change of ms had seizure today on keppra given [address] shows good post oop result for removal of SDH no further neurosurgical intervention indicated suggest neurology consult for seizure control Objective - Vital Signs/Intake and Output Vital Signs (last 24 hours): Temp Pulse Resp BP Pulse Ox 100.5 F H 65 20 130/80 98 03/27/17 08:17 03/27/17 08:17 03/27/17 08:17 03/27/17 08:03/27/17 08:17 - Medications Medications: Current Medications Folic Acid (Folic Acid) 1 mg IVP DAILY [facility] Sodium Chloride (Sodium Chloride 0.9%) 1,000 mls @ 125 mls/hr IV .Q8H [facility] Last Admin: 03/27/17 13:38 Dose: 125 mls/hr Valproate Sodium 500 mg/ (Sodium Chloride) 105 mls @ 100 mls/hr IVPB Q12 [facility] Ketorolac Tromethamine (Toradol) 15 mg IVP Q6H PRN PRN Reason: Pain, moderate (4-7) Last Admin: 03/27/17 06:47 Dose: 15 mg Multivitamins/Minerals (Therapeutic-M Tab) 1 tab PO DAILY [facility] Last Admin: 03/27/17 13:39 Dose: Not Given Pantoprazole Sodium (Protonix Inj) 40 mg IVP DAILY [facility] Pneumococcal Polyvalent Vaccine (Pneumovax 23 Vaccine) 0.5 ml IM .ONCE ONE Stop: 03/29/17 10:01 Thiamine HCl (Vitamin B1 Inj) 100 mg IM DAILY [facility] - Labs Labs: 03/27/17 07:00 03/27/17 07:00
--- NOTE | 2017-03-27 15:47 | CP.PCM.CON ---
History of Present Illness - History of Present Illness History of Present Illness: Patient is 37yo male with PMhx of traumatic SDH 2/2 intoxication s/p caniotomy on 03/17/17, placed on Keppra, with quetionable compliance admitted for headache to the general medical floor. This morning patient had a witnessed general tonic clonic seizure with tongue biting, ANALYTICAL LAB ANALYST was called. Patient was given Ativan IV, and loaded with Keppra 500mg IV x 1. Repeat CTH showed improving SDH , with no acute pathological findings. Currently the patient is somnolent, but following commands, answering questions. Complaints of BORGES. Denies fever, chills, cough, chets pain, sob, palpitations, dizziness. PMHx: SDH, polysubstance abuse PSHx: Craniotomy Allergies: NKDA FHx: NC Meds: as per EMR ROS: as per HPI Review of Systems - Review of Systems Review of Systems: as per hpi Past Patient History - Infectious Disease Hx of Infectious Diseases: None - Past Social History Smoking Status: Never Smoked - CARDIAC Hx Cardiac Disorders: No - PULMONARY Hx Respiratory Disorders: No - NEUROLOGICAL Hx Neurological Disorder: No - HEENT Hx HEENT Problems: No - RENAL Hx Renal Failure: No - ENDOCRINE/METABOLIC Hx Endocrine Disorders: No - HEMATOLOGICAL/ONCOLOGICAL Hx Blood Disorders: No - INTEGUMENTARY Hx Dermatological Problems: No - MUSCULOSKELETAL/RHEUMATOLOGICAL Hx Falls: Yes - GASTROINTESTINAL Hx Gastrointestinal Disorders: No - PSYCHIATRIC Hx Psychophysiologic Disorder: No Hx Substance Use: Yes (cocaine) - SURGICAL HISTORY Other/Comment: s/p craniotomy - ANESTHESIA Hx Anesthesia: Yes Hx Anesthesia Reactions: No Meds Allergies/Adverse Reactions: Allergies Allergy/AdvReac Type Severity Reaction Status Date / Time No Known Allergies Allergy Verified 03/26/17 20:31 - Medications Medications: Current Medications Folic Acid (Folic Acid) 1 mg IVP DAILY [facility] Sodium Chloride (Sodium Chloride 0.9%) 1,000 mls @ 125 mls/hr IV .Q8H [facility] Last Admin: 03/27/17 13:38 Dose: 125 mls/hr Valproate Sodium 500 mg/ (Sodium Chloride) 105 mls @ 100 mls/hr IVPB Q12 [facility] Ketorolac Tromethamine (Toradol) 15 mg IVP Q6H PRN PRN Reason: Pain, moderate (4-7) Last Admin: 03/27/17 06:47 Dose: 15 mg Multivitamins/Minerals (Therapeutic-M Tab) 1 tab PO DAILY [facility] Last Admin: 03/27/17 13:39 Dose: Not Given Pantoprazole Sodium (Protonix Inj) 40 mg IVP DAILY [facility] Pneumococcal Polyvalent Vaccine (Pneumovax 23 Vaccine) 0.5 ml IM .ONCE ONE Stop: 03/29/17 10:01 Thiamine HCl (Vitamin B1 Inj) 100 mg IM DAILY [facility] Physical Exam - Constitutional Appears: Well, Non-toxic, No Acute Distress - Head Exam Head Exam: ATRAUMATIC - Eye Exam Eye Exam: EOMI, Normal appearance - Neck Exam Neck exam: Positive for: Full Rom - Respiratory Exam Respiratory Exam: Clear to Auscultation Bilateral, NORMAL BREATHING PATTERN - Cardiovascular Exam Cardiovascular Exam: RRR, +S1, +S2 - GI/Abdominal Exam GI & Abdominal Exam: Normal Bowel Sounds - Extremities Exam Extremities exam: Positive for: normal inspection - Neurological Exam Neurological exam: CN II-XII Intact - Psychiatric Exam Psychiatric exam: Normal Affect Results - Vital Signs Recent Vital Signs: Last Vital Signs Temp 100.5 F H 03/27/17 08:17 Pulse 65 03/27/17 08:17 Resp 20 03/27/17 08:17 BP 130/80 03/27/17 08:17 Pulse Ox 98 03/27/17 08:17 - Labs Result Diagrams: 03/27/17 07:00 03/27/17 07:00 Labs: Laboratory Results - last 24 hr 03/27/17 03/27/17 03/27/17 07:00 07:00 07:00 WBC 8.0 D RBC 4.74 Hgb 15.3 Hct 43.9 MCV 92.6 MCH 32.3 MCHC 34.9 RDW 12.4 Plt Count 344 MPV 9.1 Gran % 65.8 Lymph % (Auto) 25.3 [place] % (Auto) 8.5 H Eos % (Auto) 0.2 L Baso % (Auto) 0.2 Gran # 5.26 Lymph # 2.0 [place] # 0.7 H Eos # 0.0 Baso # 0.02 Sodium 138 Potassium 3.9 Chloride 99 Carbon Dioxide 27 Anion Gap 16 BUN 14 Creatinine 0.8 Est GFR ( Amer) > 60 Est GFR (Non-Af Amer) > 60 Random Glucose 121 H Calcium 9.7 Magnesium 1.7 Total Bilirubin 0.7 AST 30 ALT 25 Alkaline Phosphatase 75 Total Protein 7.6 Albumin 4.5 Globulin 3.1 Albumin/Globulin Ratio 1.4 - Imaging and Cardiology Chest x-ray Status: Image reviewed by me, Report reviewed by me Assessment & Plan - Assessment and Plan (Free Text) Assessment: 37yo male with hx of SDH with seizures Seizure SDH EtOh abuse, polysubstance abuse Hypomagnesemia - currently afebrile, HD stable, comfortable on room air - non focal neurological exam - CTH without worsening of SDH Recommend: - monitor resp status - IVF - replete K, Mg - Depakote 500mg IV q12hr - HOB 30 deg - aspiration precaution, seizure precaution - follow up neurology - Tylenol for BORGES - DVT ppx, ok as per neurology, HSQ - keep NPO for now
--- NOTE | 2017-03-27 20:02 | EEG ---
DATE: DIAGNOSIS: Altered mental status. CONDITION OF THE RECORDING: Drowsy. MEDICATIONS: Reviewed by nurse reconciliation sheet. INTERPRETATION: This is a 16-channel international recording. The background activity of this recording was composed of 6 to 7 cycles per second. There was small amount of beta activity with 16-20 cycles per second seen in this recording. There was increase amount of theta activity 5-7 cycles per seconds seen in the tracing. Drowsiness was characterized by mixed beta and theta activities. The sleep was characterized by vertex transiently *------* slowing. Photic stimulation showed no change in the tracing. No paroxysmal activity is noted in this recording. CONCLUSION: This is an abnormal EEG due to presence of mild diffuse slowing consistent with mild bilateral cerebral dysfunction. No evidence of any epileptiform activity. Please clinically correlate. Td Josue MD
[2017-03-27 20:24] VITALS: O2SAT 98
[2017-03-27 20:51] VITALS: TEMP 98.8
[2017-03-27] MEDS: Valproate 500 MG in Sodium Chloride 0.9% 100 ML IVPB SCH (21:54)
[2017-03-27 21:58] LABS: BARBITURATES, UR NEGATIVE (NEGATIVE); BENZODIAZEPINES, UR NEGATIVE (NEGATIVE); OPIATES, UR POSITIVE (NEGATIVE); PHENCYCLIDINE, UR NEGATIVE (NEGATIVE)
--- NOTE | 2017-03-28 01:11 | CARD ---
APPROVED REPORT EKG Measurement Heart [id number] <Conclusion> Normal sinus rhythm with sinus arrhythmia Minimal voltage criteria for LVH, may be normal variant Borderline ECG
[2017-03-28 02:11] VITALS: BP 108/52
[2017-03-28 02:27] VITALS: PULSE 67; RESP 15
[2017-03-28] MEDS: Sodium Chloride 0.9% 1,000 ML IV SCH (03:17)
[2017-03-28 08:25] LABS: BASO # 0.02 K/mm3 (0.0-2.0); BASO % 0.3 % (0.0-3.0); EOS # 0.1 (0.0-0.7); EOS % 1.9 % (1.5-5.0); GRAN # 2.81 (1.4-6.5); GRAN % 45.6 % (50.0-68.0); HEMOGLOBIN 14.4 g/dL (14.0-18.0); LYMPH # 2.4 (1.2-3.4); LYMPH % 39.4 % (22.0-35.0); MEAN CELL VOLUME 94.1 fl (80.0-105.0); MEAN CORPUSCULAR HEMOGLOBIN 32.7 pg (25.0-35.0); MEAN CORPUSCULAR HGB CONC 34.8 g/dl (31.0-37.0); MEAN PLATELET VOLUME 8.9 fl (7.0-11.0); MONO # 0.8 (0.1-0.6); MONO % 12.8 % (1.0-6.0); PLATELET COUNT 304 10^3/uL (120.0-450.0); RED CELL DISTRIBUTION WIDTH 12.4 % (11.5-14.5); WHITE BLOOD COUNT 6.2 10^3/ul (4.5-11.0)
[2017-03-28 08:34] LABS: ALB/GLOB RATIO 1.2 (1.1-1.8); ALBUMIN 3.8 g/dL (3.0-4.8); ALT/SGPT 27 U/L (7-56); AST/SGOT 19 U/L (15-59); BLOOD UREA NITROGEN 20 mg/dL (7-21); CALCIUM 9.2 mg/dL (8.4-10.5); GFR AFRICAN-AMERICAN > 60; GFR NON-AFRICAN AMERICAN > 60
[2017-03-28] MEDS ORDERED: Thiamine 100 mg/ml Inj IM SCH (10:00)
[2017-03-28] MEDS: Valproate 500 MG in Sodium Chloride 0.9% 100 ML IVPB SCH (10:31)
--- NOTE | 2017-03-28 11:05 | CP.PCM.PN ---
Subjective - Date & Time of Evaluation Date of Evaluation: 03/28/17 Time of Evaluation: 11:03 - Subjective Subjective: Mr. Peguero was seen and examined today at bedside in the ICU. He has not had any seizures since starting depakote and he said his headache is gone. There were no acute events overnight and he had no complaints. Objective - Vital Signs/Intake and Output Vital Signs (last 24 hours): Temp Pulse Resp BP Pulse Ox 98.8 F 67 15 108/52 L 98 03/28/17 00:00 03/28/17 02:25 03/28/17 02:25 03/28/17 02:00 03/27/17 20:20 Intake and Output: 03/28/17 03/28/17 06:59 18:59 Intake Total 1500 Output Total 550 Balance 950 - Medications Medications: Current Medications Folic Acid (Folic Acid) 1 mg IVP DAILY [facility] Sodium Chloride (Sodium Chloride 0.9%) 1,000 mls @ 125 mls/hr IV .Q8H [facility] Last Admin: 03/28/17 03:17 Dose: 125 mls/hr Valproate Sodium 500 mg/ (Sodium Chloride) 105 mls @ 100 mls/hr IVPB Q12 [facility] Last Admin: 03/28/17 10:31 Dose: 100 mls/hr Ketorolac Tromethamine (Toradol) 15 mg IVP Q6H PRN PRN Reason: Pain, moderate (4-7) Last Admin: 03/27/17 06:47 Dose: 15 mg Multivitamins/Minerals (Therapeutic-M Tab) 1 tab PO DAILY [facility] Last Admin: 03/27/17 13:39 Dose: Not Given Pantoprazole Sodium (Protonix Inj) 40 mg IVP DAILY [facility] Pneumococcal Polyvalent Vaccine (Pneumovax 23 Vaccine) 0.5 ml IM .ONCE ONE Stop: 03/29/17 10:01 Thiamine HCl (Vitamin B1 Inj) 100 mg IM DAILY [facility] - Labs Labs: 03/28/17 08:00 03/28/17 08:00 - Neurological Exam Neurological Exam: Alert, Awake, CN II-XII Intact, Oriented x3, Reflexes Normal Neuro motor strength exam: Left Upper Extremity: 5, Right Upper Extremity: 5, Left Lower Extremity: 5, Right Lower Extremity: 5 Assessment and Plan (1) Subdural hematoma Assessment & Plan: Continue depakote 500 mg BID for headache and seizure prophylaxis. May downgrade to general medical floor and plan for discharge when medically stable. Will sign off. Please reconsult if there are any other issues. Status: Acute
--- NOTE | 2017-03-28 12:42 | CP.PCM.PN ---
Subjective - Date & Time of Evaluation Date of Evaluation: 03/28/17 Time of Evaluation: 08:00 - Subjective Subjective: No acute events No further seizures AAo x 3 Objective - Vital Signs/Intake and Output Vital Signs (last 24 hours): Temp Pulse Resp BP Pulse Ox 98.8 F 67 15 108/52 L 98 03/28/17 00:00 03/28/17 02:25 03/28/17 02:25 03/28/17 02:00 03/27/17 20:20 Intake and Output: 03/28/17 03/28/17 06:59 18:59 Intake Total 1500 Output Total 550 Balance 950 - Medications Medications: Current Medications Folic Acid (Folic Acid) 1 mg IVP DAILY [facility] Sodium Chloride (Sodium Chloride 0.9%) 1,000 mls @ 125 mls/hr IV .Q8H [facility] Last Admin: 03/28/17 03:17 Dose: 125 mls/hr Valproate Sodium 500 mg/ (Sodium Chloride) 105 mls @ 100 mls/hr IVPB Q12 [facility] Last Admin: 03/28/17 10:31 Dose: 100 mls/hr Ketorolac Tromethamine (Toradol) 15 mg IVP Q6H PRN PRN Reason: Pain, moderate (4-7) Last Admin: 03/27/17 06:47 Dose: 15 mg Multivitamins/Minerals (Therapeutic-M Tab) 1 tab PO DAILY [facility] Last Admin: 03/27/17 13:39 Dose: Not Given Pantoprazole Sodium (Protonix Inj) 40 mg IVP DAILY [facility] Pneumococcal Polyvalent Vaccine (Pneumovax 23 Vaccine) 0.5 ml IM .ONCE ONE Stop: 03/29/17 10:01 Thiamine HCl (Vitamin B1 Inj) 100 mg IM DAILY [facility] - Labs Labs: 03/28/17 08:00 03/28/17 08:00 - Constitutional Appears: Well - Head Exam Head Exam: ATRAUMATIC, NORMAL INSPECTION - Eye Exam Eye Exam: EOMI Pupil Exam: NORMAL ACCOMODATION, PERRL - ENT Exam ENT Exam: Mucous Membranes Moist, Normal Exam - Respiratory Exam Respiratory Exam: Clear to Ausculation Bilateral, NORMAL BREATHING PATTERN - Cardiovascular Exam Cardiovascular Exam: REGULAR RHYTHM - GI/Abdominal Exam GI & Abdominal Exam: Soft, Normal Bowel Sounds - Exam Exam: NORMAL INSPECTION - Extremities Exam Extremities Exam: Full ROM - Neurological Exam Neurological Exam: Alert, Awake, Normal Gait, Oriented x3 Assessment and Plan - Assessment and Plan (Free Text) Assessment: 37 y/o M w/ Breakthrough seizures Likely from non compliance Medications changed to Depakote from Keppra . Neurology f/u needed as outpatient . No EEg findings of SE. AAo x 3. PT/OT Hospitalist plan for possible d/c. neurology cleared.
--- NOTE | 2017-03-28 13:26 | CP.PCM.DIS ---
Provider - Provider Date of Admission: 03/27/17 16:04 Attending physician: Antonio Guardado MD Consults: Neurology: Dr. Joon Michele Neurosurgery: Dr. Marcelo Garcia Machine Baster: Dr. Leo Muñoz Time Spent in preparation of Discharge (in minutes): 30 Hospital Course - Lab Results Lab Results: Most Recent Lab Values WBC 6.2 10^3/ul (4.5-11.0) D 03/28/17 08:00 RBC 4.40 10^6/uL (3.5-6.1) 03/28/17 08:00 Hgb 14.4 g/dL (14.0-18.0) 03/28/17 08:00 Hct 41.4 % (42.0-52.0) L 03/28/17 08:00 MCV 94.1 fl (80.0-105.0) 03/28/17 08:00 MCH 32.7 pg (25.0-35.0) 03/28/17 08:00 MCHC 34.8 g/dl (31.0-37.0) 03/28/17 08:00 RDW 12.4 % (11.5-14.5) 03/28/17 08:00 Plt Count 304 10^3/uL (120.0-450.0) 03/28/17 08:00 MPV 8.9 fl (7.0-11.0) 03/28/17 08:00 Gran % 45.6 % (50.0-68.0) L 03/28/17 08:00 Lymph % (Auto) 39.4 % (22.0-35.0) H 03/28/17 08:00 [place] % (Auto) 12.8 % (1.0-6.0) H 03/28/17 08:00 Eos % (Auto) 1.9 % (1.5-5.0) 03/28/17 08:00 Baso % (Auto) 0.3 % (0.0-3.0) 03/28/17 08:00 Gran # 2.81 (1.4-6.5) 03/28/17 08:00 Lymph # 2.4 (1.2-3.4) 03/28/17 08:00 [place] # 0.8 (0.1-0.6) H 03/28/17 08:00 Eos # 0.1 (0.0-0.7) 03/28/17 08:00 Baso # 0.02 K/mm3 (0.0-2.0) 03/28/17 08:00 Sodium 139 mmol/L (132-148) 03/28/17 08:00 Potassium 4.1 mmol/L (3.6-5.0) 03/28/17 08:00 Chloride 103 mmol/L (98-107) 03/28/17 08:00 Carbon Dioxide 27 mmol/L (21-33) 03/28/17 08:00 Anion Gap 13 (10-20) 03/28/17 08:00 BUN 20 mg/dL (7-21) 03/28/17 08:00 Creatinine 0.8 mg/dL (0.5-1.4) 03/28/17 08:00 Est GFR ( Amer) > 60 03/28/17 08:00 Est GFR (Non-Af Amer) > 60 03/28/17 08:00 Random Glucose 76 mg/dL (70-110) 03/28/17 08:00 Calcium 9.2 mg/dL (8.4-10.5) 03/28/17 08:00 Magnesium 1.7 mg/dL (1.7-2.2) 03/27/17 07:00 Total Bilirubin 0.9 mg/dL (0.2-1.3) 03/28/17 08:00 AST 19 U/L (15-59) 03/28/17 08:00 ALT 27 U/L (7-56) 03/28/17 08:00 Alkaline Phosphatase 62 U/L (38-133) 03/28/17 08:00 Total Protein 6.9 g/dL (5.8-8.3) 03/28/17 08:00 Albumin 3.8 g/dL (3.0-4.8) 03/28/17 08:00 Globulin 3.1 gm/dL 03/28/17 08:00 Albumin/Globulin Ratio 1.2 (1.1-1.8) 03/28/17 08:00 Urine Opiates Screen Positive (NEGATIVE) H 03/27/17 21:30 Urine Methadone Screen Negative (NEGATIVE) 03/27/17 21:30 Ur Barbiturates Screen Negative (NEGATIVE) 03/27/17 21:30 Ur Phencyclidine Scrn Negative (NEGATIVE) 03/27/17 21:30 Ur Amphetamines Screen Negative (NEGATIVE) 03/27/17 21:30 U Benzodiazepines Scrn Negative (NEGATIVE) 03/27/17 21:30 U Oth Cocaine Metabols Negative (NEGATIVE) 03/27/17 21:30 U Cannabinoids Screen Negative (NEGATIVE) 03/27/17 21:30 - Hospital Course Hospital Course: Patient is a 37 year old male with past medical history for subdural hematoma s/ p craniotomy on 03/17/2017 who presented to the emergency department on 03/26/2017 with his cousin who expressed concern for mental status changes in the patient and progressively worsening headache. The patient was evaluated in the ED and admitted to the general medical floor for observation and monitoring. EEG was preformed showing abnormal EEG due to mild diffuse slowing consistent with mild bilateral cerebral dysfunction with no evidence epileptiform activity. On day 1 of his admission a rapid response was called on the patient for seizure activity. He was given 2mg Ativan with cessation of his seizure activity and given a 500mg IV bolus of Keppra. A repeat CT of his head was conducted and showed decreasing size of right frontal convexity subacute subdural hemorrhage, decreasing amount of high density blood within this collection, 6 mm midline shift towards the left with no downward herniation. The patient was placed in the ICU for further monitoring overnight. While in ICU the patient was evaluated by Neurosurgery and Neurology. Neurosurgery removed brigida from previous subdural hematoma evacuation surgery. Neurology evaluated the patient and recommended switching from Keppra to Depakote 500mg BID. The patient was monitored over night and found to have return of baseline mental status and without any neurological deficits. The patient was found to be stable for outpatient follow up and discharged home. The patient was educated on alcohol and drug cessation. He was also educated on the importance of staying compliant with his medical regiment. Patient expressed understanding and was agreeable. - Date & Time of H&P Date of H&P: 03/27/17 Time of H&P: 01:54 Discharge Exam - Head Exam Additional comments: Surgical scar along right side of skull clean, dry and intact, normocephalic - Eye Exam Eye Exam: EOMI, PERRL - ENT Exam ENT Exam: Mucous Membranes Moist - Neck Exam Neck exam: Full Rom - Respiratory Exam Respiratory Exam: Clear to PA & Lateral, NORMAL BREATHING PATTERN - Cardiovascular Exam Cardiovascular Exam: REGULAR RHYTHM, +S1, +S2 - GI/Abdominal Exam GI & Abdominal Exam: Normal Bowel Sounds, Soft - Rectal Exam Rectal Exam: Deferred - Extremities Exam Extremities exam: full ROM, normal capillary refill, pedal pulses present - Neurological Exam Neurological exam: Alert, CN II-XII Intact, Normal Gait, Oriented x3, Reflexes Normal - Psychiatric Exam Psychiatric exam: Normal Affect, Normal Mood - Skin Skin Exam: Dry, Normal Color, Warm Discharge Plan - Discharge Medications Prescriptions: Divalproex [Depakote DR(*BID*)] 500 mg PO BID #60 ect - Follow Up Plan Condition: STABLE Disposition: HOME/ ROUTINE Instructions: New-Onset Seizure in Adults (DC) Additional Instructions: 1. Please follow up with the [facility] to establish care with a primary care provider. Please call Dr. Garcia's (the neurosurgeon) office for a follow up appointment within 2 weeks. 2. Follow up with your neurologist, Dr. Michele within 1 week of discharge. 3. Return to the emergency room if you have any worsening of you symptoms or condition, especially if you notice any weakness or headache that is not subsided with the recommended pain medication. 4. Refrain from alcohol and tobacco use. 5. Refrain from illicit drug use, especially cocaine and alcohol. 6. For pain please take Tylenol or Mortrin as directed. 7. Discontinue taking Keppra 250mg BID 8. Please take Depakote 500mg BID as directed 9. Please take all medications as prescribed to you. Referrals: Marcelo Garcia MD [Staff Provider] - Joon Michele MD [Staff Provider] -
[2017-03-29] MEDS ORDERED: Pneumococcal 23-Valent Vaccine IM ONE (10:00)
== END 2017-03-28 15:14 | disposition home or self-care (01) | DRG 889 ==
LOC: ED 20:18 → ERH 03-27 00:23 → 3RNO 03-27 03:02 → CCU 03-27 12:16 → OBSVTOIN 03-27 16:04
PROVIDERS: ADMIT Internal Medicine; ATTEND Hospitalist
DX: G40.89 Other seizures (principal); F14.90 Cocaine use, unspecified, uncomplicated; E83.42 Hypomagnesemia; F10.10 Alcohol abuse, uncomplicated; F19.10 Other psychoactive substance abuse, uncomplicated; S06.5X9D Traumatic subdural hemorrhage with loss of consciousness of unspecified duration, subsequent encounter; Z91.14 Patient's other noncompliance with medication regimen